=== PATIENT | female | born 1940 | race Caucasian/White ===

== ENCOUNTER 2016-12-11 15:35 | Inpatient (IN) | payer MEDICARE, OTHER ==
[2016-12-11] MEDS ORDERED: carBAMazepine LIQ(*) 100 MG/5 ML UDC (10 ML) PO ONE (16:23)
--- NOTE | 2016-12-11 16:52 | RAD ---
INDICATION: Palpitations. COMPARISON: Comparison is made with a prior chest x-ray study from August 13, 2015. TECHNIQUE: A portable view of the chest was obtained. FINDINGS: Cardiac and mediastinal contours appear to be within normal limits. The lungs are clear. No pleural effusion is seen. IMPRESSION: NO EVIDENCE FOR ACUTE DISEASE.
[2016-12-11] MEDS ORDERED: Diltiazem IV* 5 MG/ML 5 ML VIAL (for loading dose/IV Push) (25 MG) IV SLOW PU ONE (17:12)
[2016-12-11 17:36] LABS: Hematocrit 43 % (35-47); Hemoglobin 14.6 g/dl (12.0-16.0); Mean Corpuscular HGB Conc 34 g/dl (31-36); Mean Corpuscular Hemoglobin 30 pg (27-31); Mean Corpuscular Volume 88 fL (80-97); Mean Platelet Volume 8 um3 (7.4-10.4); Red Blood Count 4.89 10^6/ul (4.0-5.4); Red Cell Distribution Width 14 % (10.5-15); White Blood Count 13.9 10^3/ul (3.5-10.8)
[2016-12-11] MEDS ORDERED: NS 0.9% 1000 ML*IV.FLUID IV ONE (17:36)
[2016-12-11] MEDS ORDERED: Diltiazem IV VIAL* 125 MG in D5W 100 ML BAG* 100 ML IV ONE (17:48)
[2016-12-11 17:52] LABS: Albumin 3.5 g/dL (3.2-5.2); BUN/Creatinine Ratio 34.3 (8-20); Calcium 8.6 mg/dL (8.6-10.3); EGFR African American 110.7 (>60); Globulin 2.6 g/dL (2-4); Magnesium 2.1 mg/dL (1.9-2.7); Potassium 4.4 mmol/L (3.5-5.0); Total Bilirubin 0.6 mg/dL (0.2-1.0); Total Protein 6.1 g/dL (6.4-8.9)
[2016-12-11] MEDS ORDERED: Diltiazem DRIP* 100 MG/100 ML ADDV.BAG IVPB ONE (18:00)
[2016-12-11] MEDS: oxyCODONE ORAL.SOLN* 5 MG/5 ML UDC PO ONE ×2 (18:11→18:31)
[2016-12-11 18:36] LABS: TSH (Thyroid Stimulating Horm) 2.74 mcIU/mL (0.34-5.60)
[2016-12-11 19:23] LABS: Urine Bacteria 3+ (Absent); Urine Bilirubin Negative (Negative); Urine Glucose Negative (Negative); Urine Nitrite Positive (Negative)
[2016-12-11] MEDS ORDERED: Scopolamine 1.5 mg* PATCH TRANSDERM SCH (20:00)
[2016-12-11] MEDS: PTO: Glatiramer(NF) 20 MG/ML 1 ML SYRINGE SUBCUT SCH (20:43)
[2016-12-11] MEDS: Senna TAB PO SCH (20:45)
[2016-12-11] MEDS: Gabapentin CAP(*) 400 MG PO SCH (20:45)
[2016-12-11] MEDS: tiZANidine TAB* 2 MG PO SCH (20:45)
[2016-12-11] MEDS: Docusate CAP* 100 MG PO SCH (20:45)
[2016-12-11] MEDS: Metoprolol Succinate XL TAB* 25 MG PO SCH (20:46)
[2016-12-11] MEDS: Apixaban* 5 MG TAB PO SCH (20:46)
[2016-12-11] MEDS: Morphine ORAL CONCENTRATE* 5 MG/0.25 ML ORAL.SYRIN PO PRN (22:22)
--- NOTE | 2016-12-12 04:01 | HP ---
HISTORY AND PHYSICAL: DATE OF ADMISSION: 12/11/16 ADMITTING PHYSICIAN: Mac Rubio MD PRIMARY CARE PHYSICIAN: Eduardo Suh DEVELOPER EVANGELIST and covering physician group at [facility] (Dr. Rodriguez?) CHIEF COMPLAINT: Right-sided jaw pain (burning). PAST MEDICAL HISTORY: Paroxysmal atrial fibrillation (on eliquis); multiple sclerosis; trigeminal neuralgia, status post nerve decompression x2; urinary retention, with chronic indwelling urinary catheter change monthly; hyperlipidemia; CVAs. HISTORY OF PRESENT ILLNESS: Zaynab Anna is a 76-year-old female, PMH as above, a resident of [facility], who has developed progressive extreme 10/10 burning pain in her right face near upper and lower jaw that for the last 1 to 2 days has been preventing her from taking p.o food/liquids or meds. Feels very similar to her previous remote left-sided trigeminal neuralgia. She had recently followed up with Dr. Mack of Neurology on Thursday previous to admission to discuss her multiple sclerosis and CVA history. Facial pain symptoms at that time were minimal and barely discussed. Starting on Thursday(3 days prior to admission), the patient had progressive difficulties talking or eating. Gabapentin, which she had been stopped off at some point was restarted and then day prior to admission was doubled again. This has been effective for her in the past. History is somewhat limited from the patient herself due to extreme pain with any movement of the jaw, but son and medical- decision maker/surrogate, Eleazar Briceno, is at bedside and is able to provide some additional details. History of [address] Forbes of [facility], which did seem to relieve many of her symptoms. Dr. Forbes is no longer associated with that facility. Patient was started on liquid oral morphine concentrate and prednisone. The patient reports spitting up most of her yogurt yesterday with intense burning sensation. In ED Pt noted to be in atrial fibrillation with RVR, heart rates in the 140s. Blood pressure was initially 130/106. The patient recently saw Dr. Montez within recent weeks and she was doing so well that he was considering discharging her. She is, of note, on Eliquis currently. She denies shortness of breath, palpitations, chest pain. Son tells that sometimes she does get swelling in her legs. Of note, she has profound disability from combination of her multiple sclerosis and prior strokes with only her left hand/arm completely functional. 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 She can wiggle her toes bilaterally. Reportedly, emergency room physician contacted neurologist and recommended Tegretol, but of note, the patient reportedly has a history of hallucinations with Tegretol when it was used back in 2003 for her original diagnosis of trigeminal neuralgia. Of note, son thinks at that time that given her profound weight loss of many dozens of pounds at that time that it was hard to tell if the Tegretol was in fact the culprit versus her profound nutritional debilitation. Of note, the patient was started on a diltiazem drip 5mg/hr in the emergency room. Her pressures began to get slightly soft in the low 110s and while this provider was in the room, she converted back to normal sinus rhythm in the 60s. PAST SURGICAL HISTORY: Tonsillectomy, tubal ligation, trigeminal nerve decompression x2. REVIEW OF SYSTEMS: Complete 14-point review of systems was negative except as per HPI. Of note, the patient denies chest pain, shortness of breath, palpitations, paroxysmal nocturnal dyspnea, orthopnea, abdominal pain, nausea, vomiting, diarrhea, constipation, rash, or sick contacts. She does attests to chronic right arm and bilateral leg weakness, new right-sided jaw burning pain. Denies any visual changes or headaches. No loss of sensation. Social History: no smoking or drug use. Occasional alcohol use. Eleazar Briceno (her son) is medical surrogate. Resident of [facility]. Family History: Mother (TIAs) 93, Father (CVA, CHF) age 72. son of muscular dystropy as child. PHYSICAL EXAMINATION GENERAL: The patient is in no acute distress but with any sort of talking or physical exam of mouth is in extreme discomfort, no noticeable tics though son reports that several tics at [place] were observed on right side of face. VITAL SIGNS: Blood pressure 152/120; heart rate 60s, previously 140s; afebrile , 96.4 degrees Fahrenheit; respiratory rate 15 to 20; saturating 97% on room air. HEENT: Normocephalic, atraumatic. No scleral icterus. Oropharynx exam is limited by extreme pain with any motion, but no lesions are obtained. Dentition is slightly poor with seemingly cavity on the left side of the mouth. No maame cavities were seen on the right side but multiple teeth missing. NECK: Supple. No cervical lymphadenopathy. RESPIRATORY: Clear to auscultation on bilateral lung lopez. No wheezing, rales, or rhonchi. CARDIOVASCULAR: Initially irregularly irregular, tachycardic, now normal sinus rhythm. Normal S1, S2. No murmurs, rubs, or gallops. ABDOMEN: Soft, nontender, nondistended. No rebound or guarding. Negative Rollins's sign. EXTREMITIES: Pulses intact bilaterally. No swelling. No edema. NEUROLOGIC: Career Technical Counselor strength is 4+ on the left, 3+ on the right. The patient can wiggle to us bilaterally but no antigravity motion in bilateral legs. No unilateral nasolabial drooping though both seemed to be depressed. Visual lopez are full. Extraocular motions are mostly intact, although seeming deficient to left lateral abduction in both eyes. Burning pain to stimulation in V2, V3 distribution SKIN: No rashes. No lesions. DIAGNOSTIC STUDIES/LAB DATA: Labs: She has elevated white count of 13.9, negative troponin 0.00, TSH was 2.74, creatinine 0.67, sodium 137, potassium 4.4, magnesium 2.1, BUN 23, glucose 77. Chest x-ray: No acute disease. EKG: Atrial fibrillation with rapid ventricular response, heart rate 143, normal axis, QTc 41, no ST depressions or elevations. ASSESSMENT AND PLAN: The patient is a 76-year-old female with: 1. History of profound neurological deficits stemming from her multiple sclerosis and cerebrovascular accidents, presenting with right-sided burning pain in the facial nerve distribution, V2 and V3. The patient seems to be having again flare of trigeminal neuralgia, which has been controlled in the past with gabapentin, which was stopped for unclear reason and ultimately surgical decompression. We will follow up on neurological evaluation reportedly done in the emergency room and follow with patient's outpatient neurologist in the a.m., Dr. Mack. We will continue gabapentin and oral concentrated morphine and consider rechallenge of Tegretol given unclear previous diagnosis of hallucinations. 2. Atrial fibrillation with rapid ventricular response. The patient will be continued on Eliquis. Her heart rate is now back to normal after spontaneous conversion on short time of diltiazem drip at 5 mg an hour that will be stopped. Her metoprolol succinate 25 mg daily will be continued. Elctrolytes are replete but will be checked daily including goal magnesium above 2, potassium of 4. Her Eliquis will be continued. Troponin will not be checked as she has not been complaining of any chest pain or shortness of breath. Her triggers of rapid ventricular response are likely secondary to relative dehydration in the setting of this burning nerve pain preventing p.o. intake over the last few days. She did improve with a liter bolus in the OR. We will continue IV hydration at maintenance rate overnight until she can take more adequate p.o. intake. The patient's prednisone 40 mg tab daily perhaps started in the setting of this nerve pain will be continued for now along with home Zanaflex 2 mg p.o. b.i.d., scopolamine patch 1.5 mg q.72 hours, and for multiple sclerosis, her Copaxone (glatiramer) 20 mg subcutaneous q.p.m. will be continued. Her dose of gabapentin is currently 400 mg p.o. b.i.d. that will be titrated to effect. Her home stool softener docusate 100 mg p.o. b.i.d. will be continued along with apixaban 5 mg p.o. b.i.d. 3. DVT prophylaxis, accomplished via Eliquis blood thinner. 4. Code status was discussed. She vacillated within the space of 3 minutes first thing that she did not want resuscitation and then after further clarifications, said she would want full resuscitation with CPR, chest compressions, intubation. She will be full code for now. She will be admitted to medicine observation status telemetry floor. [id number]/[facility] #: [id number] [facility]
[2016-12-12] MEDS: Morphine ORAL CONCENTRATE* 5 MG/0.25 ML ORAL.SYRIN PO PRN (05:55)
[2016-12-12] MEDS: tiZANidine TAB* 2 MG PO SCH (08:17)
[2016-12-12] MEDS: Senna TAB PO SCH ×2 (08:17→21:29)
[2016-12-12] MEDS: Docusate CAP* 100 MG PO SCH ×2 (08:18→21:29)
[2016-12-12] MEDS: Gabapentin CAP(*) 400 MG PO SCH (08:18)
[2016-12-12] MEDS: Apixaban* 5 MG TAB PO SCH ×2 (08:19→21:30)
[2016-12-12] MEDS ORDERED: OXcarbazepine TAB(*) 300 MG PO SCH (09:00)
[2016-12-12] MEDS ORDERED: predniSONE TAB* 20 MG PO SCH (09:00)
[2016-12-12 09:57] LABS: Hematocrit 39 % (35-47); Mean Corpuscular HGB Conc 34 g/dl (31-36); Mean Corpuscular Hemoglobin 30 pg (27-31); Mean Corpuscular Volume 89 fL (80-97); Mean Platelet Volume 8 um3 (7.4-10.4); Red Blood Count 4.34 10^6/ul (4.0-5.4); Red Cell Distribution Width 15 % (10.5-15); White Blood Count 8.1 10^3/ul (3.5-10.8)
[2016-12-12] MEDS ORDERED: NS 0.9% 1000 ML* 1,000 ML IV SCH (11:45)
[2016-12-12] MEDS: OXcarbazepine TAB(*) 300 MG PO SCH ×2 (15:40→21:30)
--- NOTE | 2016-12-12 17:11 | CONS ---
CC: Dr. Jennifer Mack * NEUROLOGY CONSULTATION: DATE OF CONSULT: 12/12/16 LOCATION: She is inpatient, room 434. REFERRING PHYSICIAN: Mac Rubio MD. CHIEF COMPLAINT: Right facial pain. HISTORY OF PRESENT ILLNESS: Zaynab Anna is a 76-year-old woman with multiple sclerosis for decades. She follows with Dr. Jennifer Mack in our office. She had been treated with CellCept in the past, in more recent years Copaxone. Reviewing Dr. 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 She has a history of left trigeminal neuralgia, which was very severe according to her son and [id number] who are present today. She could not eat and lost weight and became malnourished. She did not tolerate Tegretol at that time because of hallucinations, but she was very ill and was on numerous other medications according to the family, so it is not clear if she had a reaction to the Tegretol itself. In any case, she ended up getting a percutaneous procedure in the left trigeminal nerve, which resolved the left facial pain. She had a recur some years later and had a second percutaneous procedure, which worked. She developed right facial pain this past month. She was put on gabapentin and saw Dr. Mack just 7 days ago and her pain is under control on 100 mg twice per day. About 2 to 3 days ago, the pain recurred. It is in the right side of the face and was severe such that she could not take pills or eat. Swallowing or touching her face or even opening her jaw hurt. She was put on prednisone yesterday or perhaps the day before by a PA at her intermediate. She had her gabapentin increased to 400 mg twice per day 2 or 3 days ago. However, the pain was under control and she presented to the emergency room. In the emergency room, she had rapid atrial fibrillation as well as the facial pain and so was admitted. She was started on Trileptal 300 mg twice per day today. She has not had any facial pain since this morning. She also received a dose of morphine earlier today. PAST MEDICAL HISTORY: Notable for secondary progressive multiple sclerosis; right frontal infarct about a year ago; chronic atrial fibrillation, on anticoagulation with Eliquis; chronic Garcia catheter; hyperlipidemia. MEDICATIONS: Currently consist of: 1. Eliquis 5 mg p.o. b.i.d. 2. Colace 100 mg p.o. b.i.d. 3. Gabapentin 400 mg p.o. b.i.d. 4. Copaxone 20 mg subcutaneous daily. 5. Metoprolol XL 25 mg p.o. q.h.s. 6. Morphine sulfate 5 mg p.o. q.4 hours as needed for pain. 7. Trileptal 300 mg p.o. b.i.d. 8. Prednisone 40 mg p.o. daily. 9. Senokot 2 tabs p.o. b.i.d. 10. Tizanidine 2 mg p.o. b.i.d. ALLERGIES: She lists as having CARBAMAZEPINE allergy, but in fact had delirium on it and not a rash. She is also allergic to AMOXICILLIN. REVIEW OF SYSTEMS: Notable for not eating in the last couple of days because of the pain. She was able to eat today. She has chronically impaired memory. She has not been ambulatory for years. No recent fevers or infections. She has chronic double vision. PHYSICAL EXAM: She looks a little dehydrated. Temperature is 97.4 orally, blood pressure 90/35, heart rate is in the 70s and irregular. I do not hear any murmurs. Cervical pulses are intact and there are no bruits. Oral mucosa is a little bit dry, but no lesions. 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 Facial musculature is symmetric. Facial sensation is diminished to light touch in the left side of the face. There is no pain with facial sensation or motor testing. Speech is dysarthric, but intelligible. She has a little movement in her legs. She has antigravity strength in her arms. She has poor attention and concentration and poor memory. DIAGNOSTIC DATA/LAB DATA: Laboratory data includes an elevated white blood cell count yesterday when she came in at 13.9, normal at 8.1 today. CBC is otherwise normal. Chemistry profile is notable for elevated BUN to creatinine ratio of 34 yesterday and otherwise unremarkable chemistry profile. Urinalysis from yesterday notable for 2+ ketones, 3+ blood, 1+ protein, 3+ leukocyte esterase and white blood cells, 3+ bacteria. IMPRESSION: Impression is that of new right-sided trigeminal neuralgia, undoubtedly from her multiple sclerosis. So far Trileptal seems to have worked. Recommend increasing the dose to 300 mg every 8 hours and discontinuing gabapentin and prednisone. I would not be averse to trying carbamazepine again if Trileptal fails as she did not really have any allergy to it in the past and sounds like she was delirious from multifactorial reasons rather than just Tegretol in the past. Discussed my recommendations with Ms. Anna and her son and [id number]. [id number]/[facility] #: [id number] MTDYasmany
[2016-12-12] MEDS: PTO: Glatiramer(NF) 20 MG/ML 1 ML SYRINGE SUBCUT SCH (18:07)
--- NOTE | 2016-12-12 18:20 | ED ---
Hernandez [place] Angela, scribed for Babatunde Shrestha MD on 12/11/16 at 1621 . Throat Pain/Nasal Congestion - HPI Summary HPI Summary: This pt is a 76 y/o female accompanied by her son presenting to [facility] c/o right sided face pain for the past couple of days. Pt's son is reporting the story as the pt is unable to talk secondary to pain. Per son, pt has waves of sharp pain. Pt has trigeminal neuralgia on the left side and has had multiple surgeries in [facility]. She has been taking Gabapentin with no relief, amount is unknown. PMHx: atrial fibrillation. - History of Current Complaint Chief Complaint: EDDentalPain Time Seen by Provider: 12/11/16 16:11 Hx Obtained From: Patient, Family/Project Surveyor - son Onset/Duration: Lasting Days Associated Signs And Symptoms: Negative: Drooling - Allergies/Home Medications Allergies/Adverse Reactions: Allergies Allergy/AdvReac Type Severity Reaction Status Date / Time Amoxicillin [From Augmentin] Allergy Unknown Verified 04/15/13 12:13 Reaction Details Carbamazepine [From Tegretol] Allergy Unknown Verified 04/15/13 12:13 Reaction Details Clavulanic Acid Allergy Unknown Verified 04/15/13 12:13 [From Augmentin] Reaction Details Phenytoin [From Dilantin] Allergy Unknown Verified 04/15/13 12:13 Reaction Details Home Medications: Home Medications ALPRAZolam TAB* [Xanax TAB*] 0.25 mg PO MONTHLY 12/11/16 [History Confirmed ] Acetaminophen [Acetaminophen Extra Stren] 1,000 mg PO BID 12/11/16 [History Confirmed 12/11/16] Gabapentin CAP(*) [Neurontin 400 mg CAP(*)] 400 mg PO BID 12/11/16 [History Confirmed 12/11/16] Menthol-Zinc Oxide [Calmoseptine] 1 oin TOPICAL BID PRN 12/11/16 [History Confirmed 12/11/16] Metoprolol Succinate XL TAB* [Toprol XL TAB*] 25 mg PO BEDTIME 12/11/16 [ History Confirmed 12/11/16] Morphine ORAL.CONC BULK BOT* [Roxanol ORAL.CONC Bottle*] 0.25 ml PO Q4HR PRN [History Confirmed 12/11/16] Scopolamine 1.5 mg* PATCH* [Transderm-Scop 1.5 mg Patch*] 1 patch TRANSDERM Q72H 12/11/16 [History Confirmed 12/11/16] Sennosides-Docusate Sodium [Senna-S 8.6-50 mg] 2 tab PO BID 12/11/16 [History Confirmed 12/11/16] predniSONE TAB* [Deltasone TAB*] 40 mg PO DAILY 12/11/16 [History Confirmed ] tiZANidine TAB* [Zanaflex TAB*] 2 mg PO BID 12/11/16 [History Confirmed 12/11/16 ] PMH/Surg Hx/FS Hx/Imm Hx Endocrine/Hematology History: Denies: Hx Diabetes, Hx Systemic Lupus Erythematosus Cardiovascular History: Reports: Hx Atrial Fibrillation, Hx Hypercholesterolemia , Hx Hypotension Denies: Hx Congestive Heart Failure, Hx Hypertension, Hx Pacemaker/ICD Respiratory History: Denies: Hx Asthma History: Reports: Other Problems/Disorders - urinary retention, chronic hsu Denies: Hx Dialysis, Hx Renal Disease Musculoskeletal History: Reports: Other Musculoskeletal History - MS Denies: Hx Rheumatoid Arthritis Sensory History: Reports: Hx Contacts or Glasses Denies: Hx Hearing Aid Opthamlomology History: Reports: Hx Contacts or Glasses Neurological History: Reports: Hx Seizures, Other Neuro Impairments/Disorders - MS Psychiatric History: Denies: Hx Panic Disorder - Cancer History Hx Chemotherapy: No - Surgical History Surgery Procedure, Year, and Place: TONSILECTOMY. TUBAL LIGATON Hx Anesthesia Reactions: No Infectious Disease History: No Infectious Disease History: Denies: Traveled Outside the [place] in Last 30 Days - Family History Known Family History: Positive: Cardiac Disease - Mother: TIA. Father: CVA, CHF - Social History Alcohol Use: None Hx Substance Use: No Substance Use Type: Reports: None Smoking Status (MU): Never Smoked Tobacco Review of Systems Negative: Fever, Chills Eyes: Negative Positive: Other - right sided facial pain Negative: Chest Pain Negative: Shortness Of Breath Gastrointestinal: Negative Skin: Negative Negative: Headache, Weakness, Paresthesia, Numbness, Syncope All Other Systems Reviewed And Are Negative: Yes Physical Exam - Summary Physical Exam Summary: VITAL SIGNS: Reviewed. GENERAL: Patient is a well-developed and nourished, pale with dry oral mucosa female who is lying comfortable in the stretcher at this time. Patient is not in acute distress. HEAD AND FACE: No signs of trauma. No ecchymosis, hematomas or skull depressions. No sinus tenderness. EYES: PERRLA, EOMI x 2, No injected conjunctiva, no nystagmus. No photophobia. EARS: Hearing grossly intact. Ear canals and tympanic membranes are within normal limits. MOUTH: Oropharynx within normal limits. NECK: Supple, trachea is midline, no adenopathy, no JVD, no carotid bruit, no c- spine tenderness, neck with full ROM. No meningeal signs, no Kernig's or brudzinskis signs. CHEST: Symmetric, no tenderness at palpation LUNGS: Clear to auscultation bilaterally. No wheezing or crackles. CVS: Pt is tachycardic with irregular rhythm, S1 and S2 present, no murmurs or gallops appreciated. ABDOMEN: Soft, non-tender. No signs of distention. No rebound no guarding, and no masses palpated. Bowel sounds are normal. EXTREMITIES:no edema, no cyanosis or clubbing. Hypotonia in UE and LE secondary to her MS. NEURO: Alert and oriented x 3. No acute neurological deficits. Speech is normal and follows commands. SKIN: Dry and warm GCS: 15 Triage Information Reviewed: Yes Vital Signs On Initial Exam: Initial Vitals Temp Pulse Resp BP Pulse Ox 96.4 F 130 15 130/106 97 12/11/16 16:11 12/11/16 16:11 12/11/16 16:11 12/11/16 16:11 12/11/16 16:11 Vital Signs Reviewed: Yes Diagnostics - Vital Signs Vital Signs Temp Pulse Resp BP Pulse Ox 12/11/16 16:11 96.4 F 130 15 130/106 97 - Laboratory Result Diagrams: 12/11/16 17:25 12/11/16 17:25 Lab Statement: Any lab studies that have been ordered have been reviewed, and results considered in the medical decision making process. - Radiology chest XR Xray Interpretation: No Acute Changes - IMPRESSION: No evidence for acute disease. ED physician has reviewed this radiology report and agrees. Radiology Interpretation Completed By: Radiologist - EKG 1657 EKG Rhythm: Atrial Fibrillation - 143 bpm EKG Interpretation: Normal axis EENT Course/Dx - Course Assessment/Plan: This pt is a 76 y/o female accompanied by her son presenting to [facility] c/o right sided face pain for the past couple of days. Pt's son is reporting the story as the pt is unable to talk secondary to pain. Per son, pt has waves of sharp pain. Pt has trigeminal neuralgia on the left side and has had multiple surgeries in [facility]. She has been taking Gabapentin with no relief, amount is unknown. PMHx: atrial fibrillation. Test results show WBC of 13.9 without any bands, otherwise the test results are without any significant abnormalities. Chest XR shows no acute pathology. In the ED course, the pt was given IV fluids and she was given cardizem, since the pt has afib with RVR. Her heart rate increased to 125 bpm and pt was placed on a cardizem drip. Pt was also given oxycodone for the pain. At this point I discussed my findings and results with Ms. Arroyopepejuan, who discussed with Dr. Keane and accepted the pt for admission. Pt is hemodynamically stable, alert and oriented x3. - Diagnoses Provider Diagnoses: Atrial fibrillation with RVR, right trimeginal neuralgia - Provider Notifications Discussed Care Of Patient With: Jairo Boggs Instructed by Provider To: Other - I discussed the pt's case with Jairo Boggs , who spoke with Dr. Keane and accepted the pt for admission. Discharge - Discharge Plan Condition: Stable Disposition: ADMITTED TO [facility] The documentation as recorded by the Hernandez gamboa Angela accurately reflects the service I personally performed and the decisions made by me, Babatunde Shrestha MD.
--- NOTE | 2016-12-12 19:32 | PN ---
Subjective Date of Service: 12/12/16 Interval History: Started on trileptal. Pain improved from 12/23 to 11/23. Pt inconsistent historian at times. Seemingly pain free 2-[address] Wang during neuro consult. Gapapentin and steroids stopped. Cop[place]an not able to be obtained from [place] [facility] or inpatient pharmacy 04/17 excessive cost $4900. Objective Active Medications: Apixaban (Eliquis*) 5 mg PO BID [facility] Last Admin: 12/12/16 08:19 Dose: 5 mg Docusate Sodium (Colace Cap*) 100 mg PO BID [facility] Last Admin: 12/12/16 08:18 Dose: 100 mg Glatiramer Acetate (Copaxone(Nf)) 20 mg SUBCUT QPM [facility] Last Admin: 12/12/16 18:07 Dose: Not Given Sodium Chloride (Ns 0.9% 1000 Ml*) 1,000 mls @ 50 mls/hr IV .PER RATE [facility] Stop: 12/13/16 11:44 Last Admin: 12/12/16 12:31 Dose: 50 mls/hr Metoprolol Succinate (Toprol Xl Tab*) 25 mg PO BEDTIME [facility] Last Admin: 12/11/16 20:46 Dose: 25 mg Morphine Sulfate (Morphine Oral Concentrate*) 5 mg PO Q4HR PRN PRN Reason: PAIN Last Admin: 12/12/16 05:55 Dose: 5 mg Oxcarbazepine (Trileptal Tab(*)) 300 mg PO Q8H [facility] Last Admin: 12/12/16 15:40 Dose: 300 mg Scopolamine (Transderm-Scop 1.5 Mg Patch*) 1 patch TRANSDERM Q72H [facility] Last Admin: 12/11/16 20:46 Dose: 1 patch Senna (Senokot Tab*) 2 tab PO BID [facility] Last Admin: 12/12/16 08:17 Dose: 2 tab Tizanidine HCl (Zanaflex Tab*) 2 mg PO BID [facility] Last Admin: 12/12/16 08:17 Dose: 2 mg Vital Signs 12/12/16 12/12/16 12:19 15:21 Temperature 97.4 F 97.9 F Pulse Rate 62 69 Respiratory 18 16 Rate Blood Pressure 90/35 110/43 (mmHg) O2 Sat by Pulse 98 99 Oximetry Appearance: No acute distress. Favors left arm Eyes: No Scleral Icterus, PERRLA Ears/Nose/Mouth/Throat: - - dentition poor Neck: NL Appearance and Movements; NL JVP, Trachea Midline Respiratory: Symmetrical Chest Expansion and Respiratory Effort, Clear to Auscultation Cardiovascular: NL Sounds; No Murmurs; No JVD, RRR, No Edema Abdominal: NL Sounds; No Tenderness; No Distention Extremities: No Edema Skin: No Rash or Ulcers Neurological: Alert and Oriented x 3, - - very painful to light touch in V2 and V3 distribution. right arm and b/l leg weakness. intact sensation. Result Diagrams: 12/12/16 09:17 12/11/16 17:25 Additional Lab and Data: Laboratory Results - last 24 hr 12/12/16 09:17 WBC 8.1 RBC 4.34 Hgb 13.0 Hct 39 MCV 89 MCH 30 MCHC 34 RDW 15 Plt Count 208 MPV 8 Neut % (Auto) 70.3 Lymph % (Auto) 19.8 L [place] % (Auto) 7.6 Eos % (Auto) 1.5 Baso % (Auto) 0.8 Absolute Neuts (auto) 5.7 Absolute Lymphs (auto) 1.6 Absolute Monos (auto) 0.6 Absolute Eos (auto) 0.1 Absolute Basos (auto) 0.1 Absolute Nucleated RBC 0 Nucleated RBC % 0 Assess/Plan/Problems-Billing Assessment: 76 year old female PMH progressive severe MS, CVAs, left trigeminal neuralgia, pAfib who presented with right trigeminal neuralgia (V2,V3 distribution) likely 2/2 progressive MS. Course complicated in ED by Afib with RVR (resolved). Trileptal seemingly effective. Pain had prevented oral intake. - Patient Problems (1) Trigeminal neuralgia of right side of face Current Visit: Yes Status: Acute Code(s): G50.0 - TRIGEMINAL NEURALGIA SNOMED Code(s): 62354477 Comment: V2, V3 distribution, likely 2/2 progressive MS Appreciate neurology recs. Increased trileptal to 300mg q8. Stop gabapentin, prednisone. Stop zanaflex. (2) Multiple sclerosis Current Visit: No Status: Acute Code(s): G35 - MULTIPLE SCLEROSIS SNOMED Code(s): 75220094 Comment: Progressive. Likely d/c 12/13 or 12/14. Pharmacy can't obtain her copaxone her. Will need outpatient Neurology f/u. (3) Chronic indwelling Garcia catheter Current Visit: Yes Status: Acute Code(s): Z92.89 - PERSONAL HISTORY OF OTHER MEDICAL TREATMENT SNOMED Code(s): 610536974 Comment: changed monthly, asymptomatic. likely colonization with Ecoli. Replace 12/13. (4) CVA (cerebral vascular accident) Current Visit: No Status: Resolved Code(s): I63.9 - CEREBRAL INFARCTION, UNSPECIFIED SNOMED Code(s): 862029794 Comment: Continue Eliquis (5) Paroxysmal a-fib Current Visit: No Status: Acute Code(s): I48.0 - PAROXYSMAL ATRIAL FIBRILLATION SNOMED Code(s): 042218652 Comment: Continue eliquis, telemetry, metoprolol 25mg qhs. resolved RVR. Status and Disposition: medicine, changed to inpatient. Possible d/c 12/13 or 12/14 if able to tolerate po intake again. To [facility]. Attending: Mac Rubio
[2016-12-12] MEDS: Metoprolol Succinate XL TAB* 25 MG PO SCH (21:30)
[2016-12-13] MEDS: Senna TAB PO SCH (07:35)
[2016-12-13] MEDS: OXcarbazepine TAB(*) 300 MG PO SCH (07:37)
[2016-12-13] MEDS: Docusate CAP* 100 MG PO SCH (07:38)
[2016-12-13] MEDS: Apixaban* 5 MG TAB PO SCH (07:38)
[2016-12-13] MEDS ORDERED: tiZANidine TAB* 2 MG PO SCH (10:00)
[2016-12-13 10:21] LABS: Hematocrit 35 % (35-47); Mean Corpuscular HGB Conc 34 g/dl (31-36); Mean Corpuscular Hemoglobin 30 pg (27-31); Mean Corpuscular Volume 88 fL (80-97); Mean Platelet Volume 8 um3 (7.4-10.4); Red Blood Count 3.96 10^6/ul (4.0-5.4); Red Cell Distribution Width 14 % (10.5-15); White Blood Count 8.4 10^3/ul (3.5-10.8)
[2016-12-13 12:45] VITALS: BP 110/41
--- NOTE | 2016-12-15 04:29 | DS ---
DISCHARGE SUMMARY: DATE OF ADMISSION: 12/11/16 DATE OF DISCHARGE: 12/13/16 ADMITTING PROVIDER: Mac uRbio MD. ATTENDING PROVIDER: Mac Rubio MD. PRIMARY CARE PROVIDER: Eduardo Suh NP CHIEF COMPLAINT: Right-sided burning jaw pain. PRINCIPAL DIAGNOSIS: Trigeminal neuralgia. SECONDARY DIAGNOSES: Multiple sclerosis, history of CVAs, proximal atrial fibrillation, chronic ind welling urinary catheter, hyperlipidemia. HISTORY OF PRESENT ILLNESS AND HOSPITAL COURSE: Zaynab Anna is a 76-year-old female with past medical history as above lives in [facility], presented with progressive pain in her right uppe r and lower jaw preventing her from eating food or drinking from a straw for the last few days. She had seen Dr. Mack, her neurologist probably a day prior to admission for unrelated matters relat ing to multiple sclerosis and pain had been controlled at that time. Covering physician at [place] prescribed prednisone or morphine and increased the gabapentin without relief of symptoms, so patie nt transferred to [facility] Emergency Room. There, she was found to be in atrial fibrill ation with rapid ventricular response with heart rate 140. She was placed on diltiazem drip at 5 an d had spontaneous conversion back to normal sinus rhythm in the emergency room. She was admitted to observation status status and on hospital day #2 started on Trileptal 300 mg b.i.d. Neurology consu ltation was obtained from Dr. Rahman, who increased the dose to every 8 hours. The patient had rem arkable improvement of symptoms. Now, denying any pain with eating or with palpation of facial nerv e V2 or V3 distributions as she had before. Dr. Rahman also recommended cessation of her gabapenti n. Her prednisone and morphine will also recommended to be stopped. The patient will need to have CBC checked every 2 weeks for the first month while on Trileptal to monitor her signs for agranulocy tosis and anemia. Other side effects include hyponatremia, confusion. She will need to follow up w luis armando Mack, her outpatient neurologist along with BOND ANALYST, Eduardo Suh and other covering physicians at [facility]. Of note, she has a listed allergy to TEGRETOL, which she first was diagnosed ov er a decade ago with the initiation of her left-sided trigeminal neuralgia, which has since resolved . However, that was in the setting of profound weight loss of multiple dozens of pounds at the time and other medication changes, so it is not clear if that is a true side effect of that medication, so it could be considered trial if Trileptal fails. DISCHARGE MEDICATIONS: 1. Eliquis 5 mg p.o. b.i.d. 2. Copaxone (glatiramer) 20 mg subcutaneous daily. 3. Metoprolol succinate 25 mg p.o. q.h.s. 4. Trileptal 300 mg p.o. q.8 hours. 5. Scopolamine patch 1.5 mg q.72 hours. 6. Senna/docusate sodium 2 tabs p.o. b.i.d. 7. Zanaflex 2 mg p.o. b.i.d. 8. Xanax tab 0.25 mg p.o. monthly with Garcia changes. DISCHARGE DIET: Include pureed, unchanged. DISCHARGE DISPOSITION: Include [facility]. TIME SPENT ON DISCHARGE: 35 minutes [id number]/[facility] #: [id number]
== END 2016-12-13 14:15 | DRG 74 ==
LOC: ED 15:35 → MEDTELE 18:09 → OBSVTOIN 12-12 11:57
PROVIDERS: ADMIT Internal Medicine; ATTEND Internal Medicine
DX: G50.0 Trigeminal neuralgia (principal); I48.0 Paroxysmal atrial fibrillation; G35 Multiple sclerosis; E78.5 Hyperlipidemia, unspecified; H50.10 Unspecified exotropia; R33.9 Retention of urine, unspecified; Z86.73 Personal history of transient ischemic attack (TIA), and cerebral infarction without residual deficits; Z88.1 Allergy status to other antibiotic agents; Z88.8 Allergy status to other drugs, medicaments and biological substances; Z82.3 Family history of stroke; Z82.49 Family history of ischemic heart disease and other diseases of the circulatory system; Z98.51 Tubal ligation status; Z79.01 Long term (current) use of anticoagulants
CPT/HCPCS: 36415; 71010; 80053; 81003; 81015; 82607; 82746; 83735; 84439; 84443; 84484; 85025; 87077; 87086; 87186; 87641; 93005; A9270-GY; G0378; J7512

== ENCOUNTER 2017-05-15 13:38 | Emergency (ER) | payer MEDICARE ==
--- NOTE | 2017-05-15 14:39 | RAD ---
Indication: .Foot stuck under desk in a fall from wheelchair. Multiple sclerosis. Comparison: No relevant prior exams available on the [facility] PACS for comparison. Technique: AP and crosstable lateral views LEFT foot. REPORT AND IMPRESSION: Bone density appears decreased throughout. No fracture or dislocation evident. Unremarkable soft tissue contours.
--- NOTE | 2017-05-15 14:43 | ED ---
Adult Trauma - HPI Summary HPI Summary: 77 female presents to ED BIBA after sustaining a mechanical fall out of her wheelchair per patient and staff. Was unwittnessed. Patient suffers from MS and has loss of motor and sensation of majority of limbs, also has had CVA. Is on anticoagulants. States she hit her head on the wall. Denies any hematoma, headache, vision changes, vomiting, or nausea. No complaints of pain at this time. Sent to be checked out due to patients condition. Also states her left foot "got stuck under the desk". No LOC. Acting appropriately/normal mentation. - History of Current Complaint Chief Complaint: EDGeneral Stated Complaint: FALL Time Seen by Provider: 05/15/17 14:08 Hx Obtained From: Patient, Family/Placement Assistant - sisters, family and longterm, EMS ?: No Mechanism of Injury: Blunt Trauma Loss of Consciousness: no loss of consciousness Force: Low Onset/Duration: Started Hours Ago, Traumatic Current Severity: None Pain Intensity: 0 Pain Scale Used: 0-10 Numeric Location: Head, Extremities - left foot Aggravating Factor(s): Nothing Alleviating Factor(s): Nothing - Additional Pertinent History Primary Care Physician: [id number] - Allergy/Home Medications Allergies/Adverse Reactions: Allergies Allergy/AdvReac Type Severity Reaction Status Date / Time MS Amoxicillin Allergy Unknown Verified 04/15/13 12:13 [From Augmentin] Reaction Details MS Carbamazepine Allergy Unknown Verified 04/15/13 12:13 [From Tegretol] Reaction Details MS CI Pigment Blue 63 Allergy Unknown Verified 12/11/16 21:49 [From Tamiflu] Reaction Details MS Clavulanic Acid Allergy Unknown Verified 04/15/13 12:13 [From Augmentin] Reaction Details MS Digoxin [Digoxin] Allergy Unknown Verified 12/11/16 21:48 Reaction Details MS Oseltamivir [From Tamiflu] Allergy Unknown Verified 12/11/16 21:49 Reaction Details MS Phenytoin [From Dilantin] Allergy Unknown Verified 04/15/13 12:13 Reaction Details MS Rivaroxaban [From Xarelto] Allergy Unknown Verified 12/11/16 21:49 Reaction Details Home Medications: Home Medications Acetaminophen [Acetaminophen Extra Strength] 1,000 mg PO BID 05/15/17 [History Confirmed 05/15/17] Acetaminophen [Acetaminophen Extra Strength] 1,000 mg PO DAILY PRN 05/15/17 [ History Confirmed 05/15/17] Cyanocobalamin INJ * [Vitamin B12 INJ *] 1,000 mcg IM MONTHLY 05/15/17 [History Confirmed 05/15/17] Glatiramer(NF) [Copaxone(NF)] 20 mg SUBCUT DAILY 05/15/17 [History Confirmed 05/03] Menthol/Zinc Oxide [Calmoseptine Ointment Packet] 3.5 gm TOPICAL BID PRN [History Confirmed 05/15/17] OXcarbazepine TAB(*) [Trileptal 300 mg TAB(*)] 300 mg PO BID 05/15/17 [History Confirmed 05/15/17] Ranitidine TAB (NF) [Zantac TAB (NF)] 150 mg PO DAILY 05/15/17 [History Confirmed 05/15/17] Sennosides/Docusate Sodium [Senna-S Tablet] 2 tab PO BID 05/15/17 [History Confirmed 05/15/17] tiZANidine TAB* [Zanaflex TAB*] 2 mg PO BEDTIME 05/15/17 [History Confirmed 05/03] PMH/Surg Hx/FS Hx/Imm Hx Endocrine/Hematology History: Denies: Hx Diabetes, Hx Systemic Lupus Erythematosus Cardiovascular History: Reports: Hx Atrial Fibrillation, Hx Hypercholesterolemia , Hx Hypotension Denies: Hx Congestive Heart Failure, Hx Hypertension, Hx Pacemaker/ICD Respiratory History: Denies: Hx Asthma History: Reports: Other Problems/Disorders - urinary retention, chronic hsu Denies: Hx Dialysis, Hx Renal Disease Musculoskeletal History: Reports: Other Musculoskeletal History - MS Denies: Hx Rheumatoid Arthritis Sensory History: Reports: Hx Contacts or Glasses Denies: Hx Hearing Aid Opthamlomology History: Reports: Hx Contacts or Glasses Neurological History: Reports: Hx CVA, Hx Seizures, Other Neuro Impairments/ Disorders - MS Psychiatric History: Denies: Hx Panic Disorder - Cancer History Cancer Type, Location and Year: breast biopsy, benign Hx Chemotherapy: No - Surgical History Surgery Procedure, Year, and Place: TONSILECTOMY. TUBAL LIGATON. BREAST BIOPSY -BENIGN Hx Anesthesia Reactions: No - Immunization History Immunizations Up to Date: Yes Infectious Disease History: No Infectious Disease History: Reports: Hx Clostridium Difficile Denies: Traveled Outside the [place] in Last 30 Days - Family History Known Family History: Positive: None, Cardiac Disease - Mother: TIA. Father: CVA , CHF - Social History Alcohol Use: None Hx Substance Use: No Substance Use Type: Reports: None Smoking Status (MU): Never Smoked Tobacco Review of Systems Constitutional: Negative Cardiovascular: Negative Respiratory: Negative Musculoskeletal: Negative Neurological: Negative All Other Systems Reviewed And Are Negative: Yes Physical Exam Triage Information Reviewed: Yes Vital Signs On Initial Exam: Initial Vitals Temp Pulse Resp BP Pulse Ox 98.8 F 67 18 130/49 98 05/15/17 13:46 05/15/17 13:46 05/15/17 13:46 05/15/17 13:46 05/15/17 13:46 Vital Signs Reviewed: Yes Appearance: Positive: Well-Appearing, No Pain Distress, Well-Nourished Skin: Positive: Warm, Skin Color Reflects Adequate Perfusion, Dry. Negative: Cold, Numb, Cyanosis @, Pale, Erythema @ Head/Face: Positive: Normal Head/Face Inspection, Other - no racoon eyes or battles signs, no facial bone tenderness.. Negative: TMJ Tenderness, Scalp ENT: Positive: Normal ENT inspection, Hearing grossly normal, Pharynx normal Neck: Positive: Supple, Nontender Respiratory/Lung Sounds: Positive: Clear to Auscultation, Breath Sounds Present. Negative: Rales, Rhonchi, Wheezes Cardiovascular: Positive: Normal, RRR, Pulses are Symmetrical in both Upper and Lower Extremities - 2+. Negative: Murmur, Rub Abdomen Description: Positive: Nontender, Soft Bowel Sounds: Positive: Present Musculoskeletal: Positive: Strength/ROM Intact - normal per patients chronic status/MS, Other - no ecchymosis or edema, no obvious deformity, no signs of trauma. Negative: Limited @, Interruption @, Abnormal @, Pain @, Edema Left, Edema Right Neurological: Positive: Normal, Sensory/Motor Intact - per patient's norm, Alert , Oriented to Person Place, Time - [place] Coma Scale Best Eye Response: 4 - Spontaneous Best Motor Response: 6 - Obeys Commands Best Verbal Response: 5 - Oriented Coma Scale Total: 15 Diagnostics - Vital Signs Vital Signs Temp Pulse Resp BP Pulse Ox 05/15/17 13:48 68 98 05/15/17 13:46 98.8 F 67 18 130/49 98 - Laboratory Lab Statement: Any lab studies that have been ordered have been reviewed, and results considered in the medical decision making process. - Radiology left foot Xray Interpretation: No Acute Changes - Bone density appears decreased throughout. No fracture or dislocation evident. Unremarkable soft tissue contours. Radiology Interpretation Completed By: Radiologist - CT brain CT Interpretation: No Acute Changes - 1. NO ACUTE INTRACRANIAL PATHOLOGY. 2. THERE IS PROMINENCE OF THE EXTRA-AXIAL SPACES ALONG THE FRONTAL LOBES BILATERALLY WHICH MAY REFLECT VOLUME LOSS VERSUS CHRONIC SUBDURAL HYGROMAS. THIS IS SIMILAR TO THE PREVIOUS EXAMINATION. 3. EVIDENCE OF REMOTE INFARCT OF THE RIGHT MCA TERRITORY. 4. ATELECTASIS OF THE SPHENOID SINUS WITH AN AIR-FLUID LEVEL, SUGGESTIVE OF ACUTE ON CHRONIC SINUSITIS IN THE CORRECT CLINICAL SETTING. CT Interpretation Completed By: Radiologist Re-Evaluation - Re-Evaluation First Eval Re-Evaluation Time: 15:30 Change: Improved - still feeling fine, no changes, updated on imaging and ready to be d/c Adult Trauma Course/Dx - Course Course Of Treatment: patient is without complaints. feels fine. states she slid out of wheelchair and it tipped hitting her head on the wall. CT brain obtained due to patient's trauma and anticoagulant use. left foot xray also obtained due to trauma and due to patient having decreased sensation due to MS. no signs of trauma, normal physical exam. Xray and CT negative for any acute changes. No other complaints or concerns. A&Ox3 and patients normal neuro exam/mental status. Follow up. Aware of worsening signs and symptoms to watch out for. - Diagnoses Differential Diagnosis/HQI/PQRI: Positive: Contusion(s), Fracture, Dislocation, Sprain, Strain Provider Diagnoses: Head injury, Foot contusion, Accident due to mechanical fall without injury, Normal exam Discharge - Discharge Plan Condition: Stable Disposition: HOME Patient Education Materials: Head Injury (ED), Contusion in Adults (ED) Referrals: Osmany Suh NP [Primary Care Provider] - Additional Instructions: Continue to wear braces as directed. Any new or worsening symptoms please seek medical attention, return to ED. Tylenol as needed for any pain or discomfort.
--- NOTE | 2017-05-15 14:48 | RAD ---
HISTORY: Head injury, anticoagulation COMPARISONS: August 13, 2015 TECHNIQUE: Multiple contiguous axial CT scans were obtained of the head without intravenous contrast. FINDINGS: HEMORRHAGE/INFARCT: There is no hemorrhage or acute infarct. MASSES/SHIFT: There is no mass or shift. EXTRA-AXIAL SPACES: There is prominence of the extra-axial spaces along the frontal convexities bilaterally , similar to the previous examination. SULCI AND VENTRICLES: There is diffuse and proportional enlargement of the sulci and ventricles. CEREBRUM: There is right inferior frontal and anterior insular encephalomalacia consistent with remote infarct, similar to the previous examination. BRAINSTEM: There are no focal parenchymal abnormalities. CEREBELLUM: There is a chronic lacunar infarct of the right inferior cerebellum. VESSELS: The vessels are grossly normal. PARANASAL SINUSES: There is opacification of the sphenoid sinus with an air-fluid level. The sphenoid sinus is atelectatic. ORBITS: The orbits are unremarkable. BONES AND SOFT TISSUE: No bone or soft tissue abnormalities are noted. OTHER: None IMPRESSION: 1. NO ACUTE INTRACRANIAL PATHOLOGY. 2. THERE IS PROMINENCE OF THE EXTRA-AXIAL SPACES ALONG THE FRONTAL LOBES BILATERALLY WHICH MAY REFLECT VOLUME LOSS VERSUS CHRONIC SUBDURAL HYGROMAS. THIS IS SIMILAR TO THE PREVIOUS EXAMINATION. 3. EVIDENCE OF REMOTE INFARCT OF THE RIGHT MCA TERRITORY. 4. ATELECTASIS OF THE SPHENOID SINUS WITH AN AIR-FLUID LEVEL, SUGGESTIVE OF ACUTE ON CHRONIC SINUSITIS IN THE CORRECT CLINICAL SETTING.
[2017-05-15 16:08] VITALS: BP 121/59
== END 2017-05-15 16:04 | disposition home or self-care (01) ==
LOC: ED 13:38
DX: S09.90XA Unspecified injury of head, initial encounter (principal); S90.32XA Contusion of left foot, initial encounter; W05.0XXA Fall from non-moving wheelchair, initial encounter; Y92.9 Unspecified place or not applicable; G35 Multiple sclerosis; Z86.73 Personal history of transient ischemic attack (TIA), and cerebral infarction without residual deficits; I48.91 Unspecified atrial fibrillation; E78.00 Pure hypercholesterolemia, unspecified
CPT/HCPCS: 70450; 99282

== ENCOUNTER 2017-11-25 09:11 | Emergency (ER) | payer MEDICARE, OTHER ==
--- NOTE | 2017-11-25 09:47 | ED ---
GI/ HPI - HPI Summary HPI Summary: This patient is a 77 year old F BIBA to [facility] accompanied by her son, Eleazar, from [facility] for re-adjustment of her hsu catheter. [facility] staff was unable to insert the hsu catheter today and was concerned as sediment was found in the patients urine recently. Son reports a history of frequent UTIs, often presenting in behavior changes. He states her behavior and personality is normal for her today. Patient has no complaints at this time. Patient denies abdominal pain, n/v/d, SOB, CP, cough, rhinorrhea, and fever. Denies dysuria and hematuria. Son states she is wheelchair bound. PMHx of MS. Medications and Allergies reviewed. - History of Current Complaint Chief Complaint: EDUrogenitalProblems Time Seen by Provider: 11/25/17 09:18 Stated Complaint: CATH DISCOMFORT Hx Obtained From: Patient, Medical Records Onset/Duration: Started Hours Ago Pain Intensity: 0 Location of Pain: None Associated Signs and Symptoms: Positive: Negative - Additional Pertinent History Primary Care Physician: DEANN - Allergy/Home Medications Allergies/Adverse Reactions: Allergies Allergy/AdvReac Type Severity Reaction Status Date / Time amoxicillin [From Augmentin] Allergy Unknown Verified 11/25/17 09:56 Reaction Details carbamazepine [From Tegretol] Allergy Unknown Verified 11/25/17 09:56 Reaction Details clavulanic acid Allergy Unknown Verified 11/25/17 09:56 [From Augmentin] Reaction Details digoxin Allergy Unknown Verified 11/25/17 09:56 Reaction Details phenytoin [From Dilantin] Allergy Unknown Verified 11/25/17 09:56 Reaction Details rivaroxaban [From Xarelto] Allergy Unknown Verified 11/25/17 09:56 Reaction Details Home Medications: Home Medications Amiodarone HCl [Amiodarone HCl-] 100 mg PO DAILY 11/25/17 [History Confirmed 03/02] PMH/Surg Hx/FS Hx/Imm Hx Endocrine/Hematology History: Denies: Hx Diabetes, Hx Systemic Lupus Erythematosus Cardiovascular History: Reports: Hx Atrial Fibrillation, Hx Hypercholesterolemia , Hx Hypotension Denies: Hx Congestive Heart Failure, Hx Hypertension, Hx Pacemaker/ICD Respiratory History: Denies: Hx Asthma History: Reports: Other Problems/Disorders - urinary retention, chronic hsu Denies: Hx Dialysis, Hx Renal Disease Musculoskeletal History: Reports: Other Musculoskeletal History - MS Denies: Hx Rheumatoid Arthritis Sensory History: Reports: Hx Contacts or Glasses Denies: Hx Hearing Aid Opthamlomology History: Reports: Hx Contacts or Glasses Neurological History: Reports: Hx CVA, Hx Seizures, Other Neuro Impairments/ Disorders - MS Psychiatric History: Reports: Hx Panic Disorder - ANXIETY - Cancer History Cancer Type, Location and Year: breast biopsy, benign Hx Chemotherapy: No - Surgical History Surgery Procedure, Year, and Place: TONSILECTOMY. TUBAL LIGATON. BREAST BIOPSY -BENIGN Hx Anesthesia Reactions: No Infectious Disease History: No Infectious Disease History: Reports: Hx Clostridium Difficile Denies: Traveled Outside the [place] in Last 30 Days - Family History Known Family History: Positive: Cardiac Disease - Mother: TIA. Father: CVA, CHF - Social History Alcohol Use: None Hx Substance Use: No Substance Use Type: Reports: None Smoking Status (MU): Never Smoked Tobacco Review of Systems Negative: Fever, Chills Negative: Erythema Negative: Sore Throat Negative: Chest Pain Negative: Shortness Of Breath, Cough Negative: Abdominal Pain, Vomiting, Diarrhea, Nausea Positive: other - dislodged hsu catheter Negative: Myalgia, Edema Negative: Rash Neurological: Negative - dizziness All Other Systems Reviewed And Are Negative: Yes Physical Exam - Summary Physical Exam Summary: Constitutional: Well-developed, Well-nourished, Alert. (-) Distressed, urine in hsu catheter tubing with cloudy sediment Skin: Warm, Dry HENT: Normocephalic; Atraumatic Eyes: Conjunctiva normal Neck: Musculoskeletal ROM normal neck. (-) JVD, (-) Stridor, (-) Tracheal deviation Cardio: Rhythm regular, rate normal, Heart sounds normal; Intact distal pulses; The pedal pulses are 2+ and symmetric. Radial pulses are 2+ and symmetric. (-) Murmur Pulmonary/Chest wall: Effort normal. (-) Respiratory distress, (-) Wheezes, (-) Rales Abd: Soft, (-) epigastric tenderness, (-) Distension, (-) Guarding, (-) Rebound Musculoskeletal: (-) Edema, minimal strength in lower extremities Lymph: (-) Cervical adenopathy Neuro: Alert, Oriented x3 Psych: Mood and affect Normal Triage Information Reviewed: Yes Vital Signs On Initial Exam: Initial Vitals Temp Pulse Resp BP Pulse Ox 97.5 F 64 16 134/73 99 18 09:21 1218 09:21 18 09:21 18 09:21 11/25/17 09:21 Vital Signs Reviewed: Yes Diagnostics - Vital Signs Vital Signs Temp Pulse Resp BP Pulse Ox 11/25/17 09:21 97.5 F 64 16 134/73 99 - Laboratory Result Diagrams: 11/25/17 11:25 11/25/17 11:25 Lab Statement: Any lab studies that have been ordered have been reviewed, and results considered in the medical decision making process. Re-Evaluation - Re-Evaluation First Re-Evaluation Time: 13:37 Change: Improved - Patient is feeling better and would like to go back to her half-way facility. GIGU Course/Dx - Course Course Of Treatment: 77 year old F CALI to [facility] accompanied by her son, Eleazar, from [facility] for re-adjustment of her hsu catheter. [facility] staff was unable to insert the hsu catheter today and was concerned as sediment was found in the patients urine recently. Son reports a history of frequent UTIs, often presenting in behavior changes. He states her behavior and personality is normal for her today. Patient has no complaints at this time. Bloodwork and UA obtained and indicative of a UTI. Patient is given 1L of IVF. Patient's catheter was upsized. Patient will be discharged to her half-way facility with a prescrition for Keflex. Patient is agreeable with this plan. - Diagnoses Provider Diagnoses: Obstructed Hsu catheter, UTI (urinary tract infection) Discharge - Sign-Out/Discharge Documenting (check all that apply): Patient Departure - discharge - Discharge Plan Condition: Stable Disposition: [facility]ITENTIARY FACILITY Prescriptions: Cephalexin CAP* [Keflex CAP*] 500 mg PO QID #28 cap Patient Education Materials: Catheter-associated Urinary Tract Infection (ED) Referrals: Osmany Suh NP [Primary Care Provider] - Additional Instructions: RETURN TO THE EMERGENCY DEPARTMENT FOR CHANGING OR WORSENING SYMPTOMS. - Attestation Statements Document Initiated by Scribe: Yes Documenting Scribe: Mary Corado Provider For Whom Scribe is Documenting (Include Credential): eLonardo Marcelino MD Scribe Attestation: Mary Spain, scribed for Leonardo Marcelino MD on 11/25/17 at 1505.
[2017-11-25] MEDS ORDERED: NS 0.9% 1000 ML* 1,000 ML IV ONE (10:39)
[2017-11-25 11:40] LABS: ABS Basophils 0.1 10^3/ul (0-0.2); ABS Eosinophils 0.1 10^3/ul (0-0.6); ABS Lymphocytes 0.8 10^3/ul (1.0-4.8); ABS Monocytes 0.5 10^3/ul (0-0.8); ABS Neutrophils 5.7 10^3/ul (1.5-7.7); ABS Nucleated RBC 0 10^3/ul; Hematocrit 36 % (35-47); Hemoglobin 12.3 g/dl (12.0-16.0); Lymphocyte % 11.1 % (25-47); Mean Corpuscular HGB Conc 34 g/dl (31-36); Mean Corpuscular Hemoglobin 31 pg (27-31); Mean Corpuscular Volume 90 fL (80-97); Mean Platelet Volume 6.9 um3 (7.4-10.4); Nucleated Red Blood Cells % 0; Platelet Count 265 10^3/ul (150-450); Red Cell Distribution Width 14 % (10.5-15); White Blood Count 7.3 10^3/ul (3.5-10.8)
[2017-11-25 11:53] LABS: INR 0.96 (0.77-1.02)
[2017-11-25 11:57] LABS: Urine Appearance Cloudy; Urine Blood 2+ (Negative); Urine Color Yellow; Urine Ketones Negative (Negative); Urine Protein 3+(>=500 mg/dL) (Negative); Urine Red Blood Cell 3+(>10/hpf) (Absent); Urine Specific Gravity 1.012 (1.010-1.030); Urine Urobilinogen Negative (Negative); Urine White Blood Cell 3+(>20/hpf) (Absent)
[2017-11-25 12:03] LABS: EGFR Non-African American 103.4 (>60)
[2017-11-25] MEDS ORDERED: Cephalexin CAP* 500 MG PO ONE (12:17)
[2017-11-25 12:51] VITALS: BP 149/84
--- NOTE | 2017-11-28 08:03 | ED ---
Progress - Progress Note Progress Note: Patient's final urine culture reveals greater than 100,000 Enterobacter aerogenes. Patient was started on Keflex which is ineffective against organism. She is sensitive to fluoroquinolones and Bactrim however she appears to be on an anti-epileptic medication that could be affected by for quinolone. Her renal function appears to be within normal limits and I do not see sulfa drugs listed as an allergy on her chart. Spoke with Tricia at [facility] [place]. She reports there is an on-call provider today, Shannan De La O NP. Will fax results with recommendations and Shannan will adjust medication. NOTE: pt has a hsu - recommend f/u w/urology as well. 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 Re-Evaluation - Re-Evaluation First Re-Evaluation Time: 13:37 Change: Improved - Patient is feeling better and would like to go back to her nursing home facility. Course/Dx - Course Course Of Treatment: 77 year old F CALI to [facility] accompanied by her son, Eleazar, from [facility] assisted living for re-adjustment of her hsu catheter. [facility] staff was unable to insert the hus catheter today and was concerned as sediment was found in the patients urine recently. Son reports a history of frequent UTIs, often presenting in behavior changes. He states her behavior and personality is normal for her today. Patient has no complaints at this time. Bloodwork and UA obtained and indicative of a UTI. Patient is given 1L of IVF. Patient's catheter was upsized. Patient will be discharged to her nursing home facility with a prescrition for Keflex. Patient is agreeable with this plan. - Diagnoses Provider Diagnoses: Obstructed Hsu catheter, UTI (urinary tract infection) Discharge - Sign-Out/Discharge Documenting (check all that apply): Post-Discharge Follow Up - Discharge Plan Condition: Stable Disposition: HALFWAY FACILITY Prescriptions: Cephalexin CAP* [Keflex CAP*] 500 mg PO QID #28 cap Patient Education Materials: Catheter-associated Urinary Tract Infection (ED) Referrals: Osmany Suh NP [Primary Care Provider] - Additional Instructions: RETURN TO THE EMERGENCY DEPARTMENT FOR CHANGING OR WORSENING SYMPTOMS. - Billing Disposition and Condition Condition: STABLE Disposition: [facility]
== END 2017-11-25 13:27 ==
LOC: ED 09:11
DX: T83.091A Other mechanical complication of indwelling urethral catheter, initial encounter (principal); N39.0 Urinary tract infection, site not specified; Z87.440 Personal history of urinary (tract) infections; Y84.6 Urinary catheterization as the cause of abnormal reaction of the patient, or of later complication, without mention of misadventure at the time of the procedure; I48.91 Unspecified atrial fibrillation; E78.00 Pure hypercholesterolemia, unspecified; G35 Multiple sclerosis
CPT/HCPCS: 36415; 80053; 81003; 81015; 83605; 84484; 85025; 85610; 85730; 87040; 87077; 87086; 87186; 96374; 99284; A9270-GY

== ENCOUNTER 2018-02-05 19:24 | Inpatient (IN) | payer MEDICARE, MEDICAID ==
--- OUTSIDE RECORDS SUMMARY | 2018-02-05 19:37 | XMS REPORT ---
:1940 External Reference #:[id number] Author Organization [facility] Address [address] [place] [address] Phone [phone] Care Team Providers Name Role Phone Miguel Ángel Montez M.D. Care Team Information Medical Customer Service Representative Unavailable Payers Type Date Identification Numbers Payment Provider Subscriber Medicare Primary Policy Number: [id number] Medicare Zaynab J Martínezchristophercarolina PayID: [id number] [address] [place] [address] Commercial Policy Number: [id number] [facility] Zaynab Amezquitacarolina PayID: [id number] [address] [place] [address] Medigap Part B Expires: 2000 Policy Number: [facility] Zaynab Enriquez Shoshana [id number] PayID: [id number] [address] [place] [address] Problems Date Description Provider Status Onset: 04/19/2014 Secondary progressive multiple sclerosis Jennifer Mack M.D. Active Onset: 04/19/2014 Trigeminal neuralgia Jennifer Mack M.D. Active Note: left: 2003, 2011, and occasional ongoing symptoms. Onset: 04/19/2014 Spasticity Jennifer Mack M.D. Active Onset: 11/02/2015 Atrial fibrillation Miguel Ángel Montez M.D. Active Onset: 11/02/2015 H/O: TIA Miguel Ángel Montez M.D. Active Onset: 12/05/2016 Mild cognitive disorder Jennifer Mack M.D. Active Note: MoCA: Nov 2016: Onset: 12/05/2016 Ischemic stroke Jennifer Mack M.D. Active Note: Right frontal 05/2015: Afib Family History Date Family Member(s) Problem(s) Comments Father Cerebrovascular Accident (CVA) : (age 72 Years) Father due to CHF Father Congestive Heart Failure (CHF) Mother Stroke : (age 93 Years) Mother due to Stroke TIA Siblings 1 Social History Type Date Description Comments Lives With Assisted living [facility] Occupation Retired Occupation [employer] Cigarette Use Never Smoked Cigarettes was exposed to secondhand smoke ETOH Use Rarely consumes alcohol Smoking Patient has never smoked Recreational Drug Use Denies Drug Use Daily Caffeine Consumes on average 1 cup of or hot chocolate hot tea per day Exercise Type/Frequency Exercises regularly Allergies, Adverse Reactions, Alerts Date Description Reaction Status Severity Comments 04/19/2014 Augmentin active 04/19/2014 Tegretol hallucinations/confusio active 2004 n 04/19/2014 Dilantin hallucinations/confusio active exposed at same time as n tegretol 2004 08/21/2017 Digoxin active 08/21/2017 Xarelto active Medications Medication Date Status Form Strength Qnty SIG Indications Ordering Provider Copaxone Active Kit 20mg/ml inject 20mg Unknown /0000 (1ml) under the skin daily Tizanidine HCL Active Capsules 2mg 1 tab by Unknown /0000 mouth once a day as needed Metoprolol Active Tablets ER 25mg 1 by mouth Unknown Succinate ER /0000 24HR at bedtime Eliquis Active Tablets 5mg 1 by mouth Unknown /0000 twice a day Senna S Active Tablets 8.6-50mg 2 tablet by Unknown /0000 mouth by mouth twice daily Tylenol Extra Active Tablets 500mg 2 by mouth Unknown Strength /0000 twice a day, as needed Tylenol Extra Active Tablets 500mg 2 tab by Unknown Strength /0000 mouth bid Oxcarbazepine Active Tablets 300mg 1 tab by Unknown /0000 mouth twice a day Ranitidine HCL Active Capsules 150mg take one Unknown /0000 capsule by mouth once a day Tizanidine HCL Active Tablets 2mg 1 by mouth Unknown /0000 at bedtime, and once a day prn muscle spasm. Amiodarone HCL 00 Active Tablets 100mg 1 by mouth Unknown /0000 every day Cyanocobalamin Active Solution 1000mcg/M inject Unknown /0000 L every month Vitamin D-3 Hx Tablets 14525Lbrc one cap by Unknown /0000 mouth every - month 05/14 Aspirin Hx Tablets 81mg 1 by mouth Unknown /0000 every day - 08/11 Docusate Sodium Hx Capsules 100mg 2 by mouth Unknown /0000 daily - 11/25 Magnesium Oxide Hx Tablets 400mg 1 by mouth Unknown /0000 every day - 12/25 Oxybutynin Hx Tablets ER 5mg 1 by mouth Unknown Chloride ER /0000 24HR every day - 11/25 Mycophenolate Hx Tablets 500mg 1 by mouth Unknown Mofetil /0000 twice a day - 05/14 Tizanidine HCL Hx Capsules 4mg 1 tab by Unknown /0000 mouth twice - daily 07/12 Polyethylene Hx Powder 3350NF give 17 gm Unknown Glycol 3350 /0000 in liquid - of choice 11/25 by mouth /2016 every day as needed Alprazolam Hx Tablets 0.25mg 1 by mouth Unknown /0000 once a day - as needed 08/20 Abram-Gest Hx Chewtabs 500mg as needed Unknown Antacid /0000 - 05/14 Gabapentin Hx Capsules 300mg 1 by mouth Unknown /0000 every - morning for 08/11 Acetaminophen Hx Suppository 650mg 1 rectally Unknown /0000 every 6 - hours as 11/25 needed for /2016 minor pain or elevated temp Acetaminophen Hx Tablets 325mg 2 by mouth Unknown /0000 four times - a day as 11/25 Bisacodyl Hx Suppository 10mg 10 mg Unknown /0000 single - suppository 11/[address] 20mg 1 by mouth Unknown /0000 every day - 05/14 Zofran Hx Tablets 8mg 1 tab every Unknown /0000 8 hours as - needed 08/11 Amiodarone HCL Hx Tablets 200mg 1 by mouth Unknown /0000 every day - 10/16 Gabapentin Hx Capsules 100mg 1 cap. by Unknown /0000 mouth bid - 03/16 Miralax Hx Powder 3350NF 17 gm every Unknown /0000 day mixed - w/ 8 oz 11/25 water/juice Transderm-Scop Hx Patches 72HR 1mg/3Days apply one Unknown (1.5 MG) / patch - behind ear 01/07 hours Vitamin D3 Hx Capsules 86475Wxhp one by Unknown /0000 mouth once - a month 04/08 Milk Of Hx Suspension 400mg/5ML 30 Unknown Magnesia / milliliters - by mouth 04/08 day at bedtime as needed Vitamin B-12 Hx Liquid 1000mcg/1 inject 1000 Unknown /0000 ML mcg once a - month 09/10 Vital Signs Date Vital Result Comment 01/08/2018 Weight 161.12 lb Heart Rate 78 /min BP Systolic Sitting 130 mmHg BP Diastolic Sitting 78 mmHg Respiratory Rate 15 /min 09/11/2017 Weight 167.00 lb Heart Rate 72 /min BP Systolic 114 mmHg BP Diastolic 72 mmHg Respiratory Rate 16 /min 08/21/2017 Heart Rate 66 /min BP Systolic Sitting 120 mmHg lue reg cuff BP Diastolic Sitting 70 mmHg lue reg cuff Ejection Fraction 55-60% echo 05/23/2015 05/22/2017 Heart Rate 64 /min BP Systolic 124 mmHg BP Diastolic 74 mmHg Respiratory Rate 14 /min 04/10/2017 Weight 162.00 lb Heart Rate 68 /min BP Systolic Sitting 128 mmHg BP Diastolic Sitting 68 mmHg 12/26/2016 Heart Rate 66 /min BP Systolic Sitting 92 mmHg BP Diastolic Sitting 60 mmHg Respiratory Rate 16 /min 12/05/2016 Heart Rate 64 /min BP Systolic Sitting 98 mmHg BP Diastolic Sitting 68 mmHg Respiratory Rate 16 /min 11/26/2016 Weight 169.50 lb per [place] 11/17/2016 Heart Rate 60 /min BP Systolic Sitting 98 mmHg Lue reg cuff BP Diastolic Sitting 66 mmHg Lue reg cuff Respiratory Rate 16 /min Ejection Fraction 55-60% 05/23/2015-echo 06/09/2016 Heart Rate 62 /min BP Systolic Sitting 92 mmHg BP Diastolic Sitting 58 mmHg Respiratory Rate 17 /min 11/02/2015 Weight 157.25 lb per [place] 09/08/15 Heart Rate 70 /min BP Systolic Sitting 90 mmHg LA reg cuff BP Diastolic Sitting 58 mmHg LA reg cuff Respiratory Rate 16 /min Ejection Fraction 55-60% 05/23/15 09/13/2015 Heart Rate 76 /min irreg BP Systolic Sitting 88 mmHg Lue, reg cuff BP Diastolic Sitting 60 mmHg Lue, reg cuff BP Systolic Recheck 86 mmHg Lue BP Diastolic Recheck 60 mmHg Lue Respiratory Rate 16 /min Ejection Fraction 55-60% As of 06/02/15 echo 01/31/2015 Heart Rate 62 /min BP Systolic Sitting 102 mmHg BP Diastolic Sitting 60 mmHg Respiratory Rate 16 /min 09/07/2014 Heart Rate 64 /min BP Systolic Sitting 130 mmHg BP Diastolic Sitting 76 mmHg Respiratory Rate 16 /min 06/22/2014 Heart Rate 56 /min BP Systolic Sitting 128 mmHg BP Diastolic Sitting 70 mmHg Respiratory Rate 16 /min 04/19/2014 Heart Rate 56 /min BP Systolic Sitting 120 mmHg BP Diastolic Sitting 68 mmHg Respiratory Rate 16 /min Results Test Date Test Result H/L Range Note Laboratory test finding 12/09/2016 TSH (Thyroid Stim 2.55 mcIU/mL 0.34- 5.60 Horm) Free T4 (Free Thyroxine) 1.26 ng/dL High 0.61-1.12 Vitamin B12 And Folate Serum 12/09/2016 Vitamin B12 279 pg/mL 180-914 1 Folic Acid (Folate) 11.56 ng/mL >3.99 Basic Metabolic Panel 05/02/2014 Sodium 134 mmol/L 133-145 Potassium 4.8 mmol/L 3.5-5.0 Chloride 105 mmol/L 101-111 Co2 Carbon Dioxide 25 mmol/L 22-32 Anion Gap 4 mmol/L 2-11 Glucose 90 mg/dL 70-100 Blood Urea Nitrogen 13 mg/dL 6-24 Creatinine 0.87 mg/dL 0.51-0.95 BUN/Creatinine Ratio 14.9 8-20 Calcium 8.5 mg/dL Low 8.6-10.3 Egfr Non- 64.0 >60 Egfr 82.3 >60 2 Liver Function Panel 05/02/2014 Total Protein 4.9 g/dL Low 6.4-8.9 Albumin 3.3 g/dL 3.2-5.2 Globulin 1.6 g/dL Low 2-4 Albumin/Globulin Ratio 2.1 1-3 Total Bilirubin 0.40 mg/dL 0.2-1.0 Direct Bilirubin 0.00 mg/dL Low 0.03-0.18 Indirect Bilirubin (SEE NOTE) mg/dL 0.3-1.0 3 Alkaline Phosphatase 98 U/L 34-104 Alt 5 U/L Low 7-52 Ast 11 U/L Low 13-39 1 Normal Range 180 to 914 Indeterminate Range 145 to 180 Deficient Range <145 2 Because ethnic data is not always readily available, this report includes an eGFR for both -Americans and non- Americans. The National Kidney Disease Education Program (NKDEP) does not endorse the use of the MDRD equation for patients that are not between the ages of 18 and 70, are , have extremes of body size, muscle mass, or nutritional status, or are non- or non-. According to the National Kidney Foundation, irrespective of diagnosis, the stage of the disease is based on the level of kidney function: Stage Description GFR(mL/min/1.73 m(2)) 1 Kidney damage with normal or decreased GFR 90 2 Kidney damage with mild decrease in GFR 60-89 3 Moderate decrease in GFR 30-59 4 Severe decrease in GFR 15-29 5 Kidney failure <15 (or dialysis) 3 Unable to calculate Ind Bili as D Bili is <0.1 Procedures Date CPT Code Description Status 08/21/2017 37930 EKG Tracing & Interpretation Completed 11/26/2016 09640 EKG Tracing & Interpretation Completed 10/18/2015 69460 Holter Monitor Review (24 hr)dr review & interp only Completed 10/15/2015 56148 ECG Monitor/Recording W/Visual Superimposition Scanning Completed 09/13/2015 90671 EKG Tracing & Interpretation Completed 08/23/2015 41530 EKG, Interpretation Only Completed 08/15/2015 05285 EKG, Interpretation Only Completed 08/14/2015 21047 EEG Recording Awake & Asleep Completed 05/23/2015 33846 ECHO Transthorasic Realtime 2D W Doppler & Color Flow Completed Hosp 04/26/2013 63753 EKG, Interpretation Only Completed 04/25/2013 63700 EKG, Interpretation Only Completed 04/22/2013 34533 EKG, Interpretation Only Completed 04/21/2013 89131 EKG, Interpretation Only Completed 04/18/2013 62420 ECHO Transthorasic Realtime 2D W Doppler & Color Flow Completed Hosp 04/17/2013 01746 EKG, Interpretation Only Completed Encounters Type Date Location Provider CPT E/M Dx Office Visit 01/08/2018 11:30a [facility] Jennifer Mack M.D. 32736 G35 Services Of [facility] Giver G50.0 R41.89 N39.0 E87.1 E55.9 Office Visit 09/11/2017 10:45a [facility] Jennifer Mack M.D. 52357 G35 Services [facility] G50.0 R41.89 E55.9 Office Visit 08/21/2017 10:30a [facility] Miguel Ángel Montez, 58675 I48.91 Marty Hernandez Office Visit 05/22/2017 10:30a [facility] Jennifer Mack M.D. 78813 G35 Services Of [facility] G50.0 R41.89 E55.9 N39.0 Office Visit 04/10/2017 11:30a [facility] Jennifer Mack M.D. 91294 G35 Services Of [facility] Giver G50.0 R41.89 E55.9 Office Visit 12/26/2016 11:00a [facility] Jennifer Mack M.D. 98229 G50.0 Services Of Child Care Giver G35 R41.89 Office Visit 12/13/2016 8:27a [facility], [place] [address] G50.0 Hospitalists G35 I48.91 Z86.73 Office Visit 12/12/2016 10:59a [facility] Mohan Rahman, 08306 G50.0 Mary G35 Office Visit 12/12/2016 8:26a [facility],[place] [address] G50.0 Hospitalists G35 I48.91 Z86.73 Office Visit 12/11/2016 8:25a [facility],[place] [address] I48.91 Hospitalists G35 G50.0 Z86.73 Office Visit 12/05/2016 11:00a [facility] Jennifer Mack M.D. 84561 G35 Services Of [facility] R41.89 G50.0 Office Visit 11/26/2016 11:45a [facility] Markie Montez, 76475 I48.0 Child Care Giver M.D. Office Visit 06/09/2016 11:30a [facility] Jennifer Mack M.D. 09757 G35 Services [facility] Z86.73 Office Visit 11/02/2015 3:15p [facility] Markie Montez, 47492 I48.0 Child Care Giver M.D. G45.9 Office Visit 09/13/2015 12:45p [facility] Markie Montez, 16107 G45.9 [facility] M.D. I48.1 Office Visit 08/24/2015 12:34p [facility],pc Ruth Roche, 19140 G45.9 Hospitalists D.O. G35 I48.91 Office Visit 08/23/2015 3:30p [facility] [address] M.D. 79606 I48.0 I49.5 Office Visit 08/23/2015 12:33p [facility],[place] [address] G45.9 Hospitalists G35 I48.91 Office Visit 08/22/2015 4:01p [facility] Sherman Mccrary M.D. 81116 I48.91 Child Care Giver G45.9 Office Visit 08/22/2015 12:33p [facility],[place] [address] G35 Hospitalists G45.9 I48.91 Office Visit 08/21/2015 4:28p [facility] Of Miguel Ángel Montez, 10007 I48.91 Child Care Giver M.D. Office Visit 08/21/2015 12:32p [facility] [address] G45.9 Hospitalists G35 I48.91 Office Visit 08/20/2015 12:48p [facility] Lobo Keane, 47754 G45.9 Hospitalists M.DDayton I48.91 G35 Office Visit 08/19/2015 12:48p [facility] Lobo Keane, 53151 G45.9 Hospitalists M.D. I48.91 G35 Office Visit 08/19/2015 4:32p [facility] Miguel Ángel Montez, 15061 I48.91 Child Care Giver M.D. Office Visit 08/18/2015 12:47p [facility] Lobo Keane, 29525 G45.9 Hospitalists M.D. I48.91 G35 Office Visit 08/18/2015 12:46p [facility] 96065 I48.91 Child Care Giver M.D. G45.9 Office Visit 08/17/2015 12:47p [facility] Lobo Keane, 53824 G45.9 Hospitalists M.D. I48.91 G35 Office Visit 08/16/2015 12:46p [facility] Lobo Keane, 17830 G45.9 Hospitalists M.D. I48.91 G35 Office Visit 08/15/2015 12:45p [facility] Ruth Roche, 47247 G45.9 Hospitalists D.O. I48.91 G35 Office Visit 08/15/2015 10:00a [facility] [address] Z86.73 R53.1 N39.0 G35 Office Visit 08/14/2015 12:44p [facility] Ruth Roche, 25639 G45.9 Hospitalists D.O. I48.91 G35 Office Visit 08/14/2015 9:57a [facility] [address] R53.1 Z86.73 N39.0 G35 R94.01 Office Visit 08/13/2015 12:43p [facility] Riley Demarco M.D. 47378 G45.9 Hospitalists G35 Office Visit 05/25/2015 10:15a [facility],[place] [address] I63.9 Hospitalists G35 I48.0 N39.0 Office Visit 05/24/2015 10:14a [facility] Trang Patton, 04398 I63.9 Assoc, [facility] Hospitalists G35 I48.0 N39.0 Office Visit 05/24/2015 10:26a [facility] [address] I63.411 G35 Office Visit 05/23/2015 10:45a [facility] Trang RoweOanhFreeman, 94282 I63.9 Assoc,pc [employer] Hospitalists G35 I48.0 N39.0 Office Visit 05/23/2015 10:25a [facility] [address] I63.411 G35 Office Visit 01/31/2015 2:00p [facility] Jennifer Mack M.D. 11044 G35 Services Of [facility] Office Visit 09/07/2014 11:30a [facility] Jennifer Mack M.D. 37102 340 Services [facility] 728.85 Office Visit 06/22/2014 10:00a [facility] Jennifer Mack M.D. 31076 340 Services [facility] Office Visit 04/19/2014 10:00a [facility] Jennifer Mack M.D. 39411 340 [facility] 728.85 799.59 Office Visit 04/24/2013 8:23a [facility] [address], [address] 427.31 M.D. 427.81 340 Office Visit 04/23/2013 3:59p [facility] [address], [address]361 427.31 M.D. 427.81 Office Visit 04/21/2013 2:45p [facility] [address], [address]657 427.31 M.D. 427.31 Plan of Care Future Appointment(s):08/06/2018 11:00 am - Jennifer Mack M.D. at [facility]01/08/2018 - Jennifer Mack M.D.G35 Multiple sclerosisFollow up:6 months (30 min)Recommendations:continued use of splint and work on range of wqaznoleG50.0 Trigeminal pujvgjlstM67.89 Oth symptoms and signs w cognitive functions and sujowbyccX39.0 Urinary tract infection, site not specifiedRecommendations:Proteus mirabilis is growing out of the urine as of this morning (> 100,000). Sensitivities to antibiotics have not been reported. Have group home medical staff watch for results and treat accordingly.E87.1 Hypo-osmolality and hyponatremiaNew Labs:CMP PanelRecommendations:repeat metabolic panel. Na was low in ERE55.9 Vitamin D deficiency, unspecifiedRecommendations:suggest adding 2000 IU each day
[2018-02-05] MEDS ORDERED: NS 0.9% 1000 ML* 1,000 ML IV ONE (19:45)
[2018-02-05] MEDS ORDERED: Diltiazem IV* 5 MG/ML 5 ML VIAL (for loading dose/IV Push) (25 MG) IV PUSH ONE (19:45)
[2018-02-05] MEDS ORDERED: Diltiazem DRIP* 100 MG/100 ML ADDV.BAG IVPB ONE (19:45)
[2018-02-05] MEDS ORDERED: Diltiazem IV VIAL* 125 MG in NS 0.9% 100 ML* 100 ML IV SCH ×2 (21:00→22:02)
--- NOTE | 2018-02-05 21:06 | ED ---
GI/ HPI - HPI Summary HPI Summary: Pt is a 78 y/o female brought in by EMS who presents to the ED c/o catheter issues. As per son, the custodial was having an issue placing her Hsu catheter, and the pt was sent here to have it placed. Pt has been here before for a Hsu catheter placement. She was just treated for a UTI last week, and son believes it was never fully resolved. As per son, something seems off and she has had some AMS for the past 2 weeks. The past 2 nights she has been screaming. Pt denies any fever, CP, palpitations, SOB, abdominal pain, numbness , or tingling. Pts HR is 175 bpm while in the room, and she has a hx of AFib. Pt is on blood thinners. - History of Current Complaint Time Seen by Provider: 02/05/18 19:44 Stated Complaint: RAPID HEART RATE/CATHETER ISSUES Hx Obtained From: Patient, Family/Job Coach/Job Developer - Son Onset/Duration: Started Days Ago - ~1-2 weeks ago Timing: Constant Pain Intensity: 3 Associated Signs and Symptoms: Negative: Fever, Abdominal Pain Aggravating Factor(s): Nothing Alleviating Factor(s): Nothing - Additional Pertinent History Primary Care Physician: [id number] - Allergy/Home Medications Allergies/Adverse Reactions: Allergies Allergy/AdvReac Type Severity Reaction Status Date / Time amoxicillin [From Augmentin] Allergy Unknown Verified 11/25/17 09:56 Reaction Details carbamazepine [From Tegretol] Allergy Unknown Verified 11/25/17 09:56 Reaction Details clavulanic acid Allergy Unknown Verified 11/25/17 09:56 [From Augmentin] Reaction Details digoxin Allergy Rash Verified 02/05/18 23:54 phenytoin [From Dilantin] Allergy Unknown Verified 11/25/17 09:56 Reaction Details rivaroxaban [From Xarelto] Allergy Unknown Verified 11/25/17 09:56 Reaction Details PMH/Surg Hx/FS Hx/Imm Hx Endocrine/Hematology History: Denies: Hx Diabetes, Hx Systemic Lupus Erythematosus Cardiovascular History: Reports: Hx Atrial Fibrillation, Hx Hypercholesterolemia , Hx Hypotension Denies: Hx Congestive Heart Failure, Hx Hypertension, Hx Pacemaker/ICD Respiratory History: Denies: Hx Asthma History: Reports: Other Problems/Disorders - urinary retention, chronic hsu Denies: Hx Dialysis, Hx Renal Disease Musculoskeletal History: Reports: Other Musculoskeletal History - MS Denies: Hx Rheumatoid Arthritis Sensory History: Reports: Hx Contacts or Glasses Denies: Hx Hearing Aid Opthamlomology History: Reports: Hx Contacts or Glasses Neurological History: Reports: Hx CVA, Hx Seizures, Other Neuro Impairments/ Disorders - MS Psychiatric History: Reports: Hx Panic Disorder - ANXIETY - Cancer History Cancer Type, Location and Year: breast biopsy, benign Hx Chemotherapy: No - Surgical History Surgery Procedure, Year, and Place: TONSILECTOMY. TUBAL LIGATON. BREAST BIOPSY -BENIGN Hx Anesthesia Reactions: No Infectious Disease History: No Infectious Disease History: Reports: Hx Clostridium Difficile Denies: Traveled Outside the [place] in Last 30 Days - Family History Known Family History: Positive: Cardiac Disease - Mother: TIA. Father: CVA, CHF - Social History Alcohol Use: None Hx Substance Use: No Substance Use Type: Reports: None Hx Tobacco Use: No Smoking Status (MU): Never Smoked Tobacco Review of Systems Negative: Fever Negative: Palpitations, Chest Pain Negative: Shortness Of Breath Negative: Abdominal Pain Negative: other - Hsu catheter issue Negative: Paresthesia, Numbness All Other Systems Reviewed And Are Negative: Yes Physical Exam - Summary Physical Exam Summary: Appearance: chronically-ill appearing, no pain distress Skin: warm, dry, reflects adequate perfusion Head/face: normal Eyes: EOMI, WISAM, strabismus ENT: mucous membranes tacky Neck: supple, non-tender Respiratory: CTA, breath sounds diminished in bases Cardiovascular: tachycardic, irregular rhythm, pulses symmetrical, slight LE edema Abdomen: non-tender, soft, Hsu catheter in place with leaking around tube and sedimented urine Bowel Sounds: present Musculoskeletal: unable to move legs Neuro: normal, sensory motor intact, A&Ox3 Triage Information Reviewed: Yes Vital Signs On Initial Exam: Initial Vitals BP 128/98 02/05/18 19:30 Vital Signs Reviewed: Yes Diagnostics - Vital Signs Vital Signs Temp Pulse Resp BP Pulse Ox 02/05/18 19:40 102.4 F 163 20 128/98 97 02/05/18 19:31 127 99 02/05/18 19:30 128/98 - Laboratory Result Diagrams: 02/05/18 20:50 02/05/18 20:50 Lab Statement: Any lab studies that have been ordered have been reviewed, and results considered in the medical decision making process. - Radiology CXR Radiology Interpretation Completed By: ED Physician - No acute pulmonary disease. Pending official radiology report. - EKG 19:40 Cardiac Rate: Other Rate - AFib - 160 bpm EKG Rhythm: Atrial Fibrillation ST Segment: Normal Summary of EKG Findings: Nl axis Re-Evaluation - Re-Evaluation First Eval Re-Evaluation Time: 21:54 Change: Unchanged Comment: Pt still is in AFib. GIGU Course/Dx - Course Course Of Treatment: Chronically debilitated, bed ridden MS patient with mechanical complication of Hsu catheter found to have rapid atrial fibrillation. She was placed on diltiazem drip after a bolus was given. She' ll be titrated in this to control heart rate. Possible urinary infection. Pending urine. We will not change Hsu catheter until antibiotics are on board per the wishes of the hospitalist team. Patient to be admitted to the telemetry service. - Diagnoses Differential Diagnoses - Female: Other - Sepsis, rapid A. fib, UTI, pneumonia, bacteremia, UT, PE Provider Diagnoses: Rapid atrial fibrillation, Complication of Hsu catheter, Multiple sclerosis - Physician Notifications Discussed Care Of Patient With: Pamela Ambriz Time Discussed With Above Provider: 23:00 Instructed by Provider To: Admit As Inpatient - Critical Care Time Critical Care Time: 30-74 min - CCT is EXCLUSIVE of separately billable procedures. Discharge - Sign-Out/Discharge Documenting (check all that apply): Patient Departure - Admit - Discharge Plan Condition: Fair Disposition: ADMITTED TO [facility] - Billing Disposition and Condition Condition: FAIR Disposition: Admitted to [facility] - Attestation Statements Document Initiated by Yuly: Yes Documenting Joseibe: Tri Salcido Provider For Whom Yuly is Documenting (Include Credential): Devin Ferrell MD Scribe Attestation: Tri [place], scribed for Devin Ferrell MD on 02/06/18 at 0148. Scribe Documentation Reviewed: Yes Provider Attestation: The documentation as recorded by the Tri gamboa accurately reflects the service I personally performed and the decisions made by me, Devin Ferrell MD
[2018-02-05 21:08] LABS: INR 0.91 (0.77-1.02)
[2018-02-05 21:36] LABS: White Blood Count 11.4 10^3/ul (3.5-10.8)
[2018-02-05 21:45] LABS: Hematocrit 37 % (35-47); Hemoglobin 12.2 g/dl (12.0-16.0); Mean Corpuscular HGB Conc 33 g/dl (31-36); Mean Corpuscular Hemoglobin 30 pg (27-31); Mean Corpuscular Volume 92 fL (80-97); Platelet Count 167 10^3/ul (150-450); Red Blood Count 4.03 10^6/ul (4.00-5.40); Red Cell Distribution Width 15 % (10.5-15)
[2018-02-05] MEDS ORDERED: Ondansetron INJ* 2 MG/ML VIAL IV PRN (21:59)
[2018-02-05] MEDS ORDERED: Acetaminophen TAB* 325 MG PO PRN (22:00)
[2018-02-05 22:10] LABS: Monocytes % 6 % (0-7)
[2018-02-05 22:12] LABS: ABS Neutrophils 10.04 10^3/ul (1.5-7.7)
[2018-02-06] MEDS ORDERED: Digoxin IV* 0.5 MG/2 ML AMP (0.25 MG/ML) IV SLOW PU ONE
[2018-02-06] MEDS ORDERED: Diltiazem IV* 5 MG/ML 5 ML VIAL (for loading dose/IV Push) (25 MG) IV SLOW PU ONE
[2018-02-06] MEDS: cefTRIAXone(*) 1 GM in NS 0.9% 50 ML* 50 ML IVPB SCH (00:10)
[2018-02-06] MEDS: NS 0.9% 1000 ML* 1,000 ML IV SCH ×2 (00:40→11:13)
--- NOTE | 2018-02-06 02:23 | HP ---
CC: Osmany Suh NP; Dr. Jennifer Mack * ADMISSION HISTORY AND PHYSICAL: DATE OF ADMISSION: 02/05/18 PRIMARY CARE PROVIDER: Osmany Suh NP, at [facility]. MY ATTENDING WHILE IN THE HOSPITAL: Dr. Pamela Ambriz.* (DICTATED BY FRANK RIOS) OUTPATIENT NEUROLOGIST: Dr. Jennifer Mack. CHIEF COMPLAINT: Garcia leak, rapid atrial fibrillation. HISTORY OF PRESENT ILLNESS: Ms. Anna is a 78-year-old female with past medical history significant for secondary progressive MS, history of CVA, chronic indwelling Garcia catheter due to urinary retention, paroxysmal atrial fibrillation, and recurrent urinary tract infections, who presents to the hospital after 1 week ago she was treated for UTI, but then on Thursday of this week, 02/03/18, she was found to be very confused and combative raising the concern for another UTI. The patient is cognitively impaired due to her MS and is unable to very clearly elucidate her symptoms, so her history was mainly gained from her son, who has intermittent contact with her. The patient had no vital sign abnormalities [facility] at the [facility] per the son. Due to the concern for recurrent UTI, the patient was going to have her Garcia changed, but when they went to put in new Garcia, they were unable to do so successfully without a leak, so she was sent to the emergency department. While in the ambulance, she was found to be in AFib with RVR with rates up to the 160s without hypotension. The patient came to the emergency department and was again found to be in AFib with RVR. The patient was started on diltiazem drip with mild success. The patient was found to have a temperature initially of 102.4. The patient in the emergency department felt fine without lightheadedness, chest pain, shortness of breath, palpitations. The patient had no abdominal pain or back pain. The patient is a very poor historian. The patient relies very strongly on her son to give history for her. Due to concern for AFib with RVR and sepsis, we were asked to evaluate the patient for admission to the hospital. PAST MEDICAL HISTORY: Secondary progressive multiple sclerosis, history of CVA , indwelling Garcia cath due to urinary retention, recurrent UTIs, hyperlipidemia, paroxysmal atrial fibrillation, trigeminal neuralgia, anxiety, history of sacral pressure ulcer, vitamin D deficiency, vitamin B12 deficiency, and GERD. MEDICATIONS: From [facility] records: 1. Amiodarone 100 mg p.o. daily. 2. Glatiramer 20 mg subcutaneous daily. 3. Vitamin B12 1000 mcg IM monthly. 4. Eliquis 5 mg p.o. b.i.d. 5. Oxcarbazepine 300 mg p.o. b.i.d. 6. Metoprolol succinate 25 mg p.o. daily. 7. Ranitidine 150 mg p.o. daily. 8. Senna-S 1 tab p.o. b.i.d. 9. Tizanidine 2 mg p.o. daily scheduled and tizanidine 2 mg p.o. p.r.n. 10. Tylenol 1000 mg p.o. b.i.d. scheduled and Tylenol 1000 mg p.o. daily as needed. 11. Vitamin D 1000 units p.o. daily. ALLERGIES: DIGOXIN, AMOXICILLIN, VALPROIC ACID, PHENYTOIN, XARELTO; the reaction to these medications are unknown. FAMILY HISTORY: The patient's father in his sleep, presumably with an ID. The patient's mother at 93 from report of medication error. The patient has a sister who is alive and well and has only hypertension. The patient had a son who of muscular dystrophy. The patient has another son who is alive and well. SOCIAL HISTORY: The patient never smoked or drank. No use of illicit drugs. 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 The patient has been twice; once , once . The patient has 2 children, one of whom is living. Her surrogate decision maker is her son, Eleazar Anna. REVIEW OF SYSTEMS: A 14-point review of systems was reviewed with this patient and her son and were negative except as above in the HPI. PHYSICAL EXAMINATION GENERAL: The patient is a 78-year-old female, who appears stated age and sitting comfortably in bed, in no acute distress. VITAL SIGNS: At the time of evaluation, temperature 102.4, pulse rate 163, respiratory rate 20, oxygen saturation 97% on room air, blood pressure 120/98. HEENT: Head: Normocephalic, atraumatic. Sclerae anicteric. No conjunctival injection. Nasal mucosa moist. Oral mucosa moist. No pharyngeal erythema, discharge, or exudate. NECK: Supple, nontender. No lymphadenopathy. No carotid bruits auscultated. No JVD. RESPIRATORY: Clear to auscultation bilaterally. No wheezes, rhonchi, good air exchange bilaterally. CARDIAC: Irregularly irregular rhythm, fluctuating rate. Severely tachycardic. No clicks, murmurs, gallops, or rubs. Pulses are 2+ in the bilateral dorsalis pedis, posterior tibial, and radial areas. ABDOMEN: Soft, nontender, nondistended. Bowel sounds present and normoactive in all 4 quadrants. No hepatosplenomegaly. No abdominal bruits auscultated. No hepatojugular reflux. GENITOURINARY: No suprapubic or CVA tenderness. Garcia catheter intact, draining cloudy, yellow urine with small amount of blood clots. NEUROLOGIC: The patient is unable to fully cooperate with neurologic exam. The patient has exotropia with leftward gaze. No other cranial nerve deficits. The patient has contracture of the right upper extremity. The patient has 2/ 5 strength in the left upper extremity. The patient has symmetrical 3/5 strength in bilateral lower extremities. The patient's neurological exam is difficult. The patient is alert and oriented x3, but very forgetful. PSYCHIATRIC: Pleasant and cooperative. DIAGNOSTIC STUDIES/LAB DATA: White blood cell count 11.4, hemoglobin 12.2, hematocrit 37, platelet count 167. INR 0.91. Sodium 137, potassium 3.9, chloride 104, carbon dioxide 26, anion gap 7, BUN 11, creatinine 0.71, glucose 125, lactic acid 1.0, calcium 8.6. Bilirubin 0.5, AST 49, ALT 58, alkaline phosphatase 242. Troponin-I 0.03. BNP 678. Total protein 5.9, albumin 3.5, globulin 2.4. TSH 2.15. Studies: Chest x-ray shows to this author's interpretation no acute cardiopulmonary disease. Electrocardiogram shows irregularly irregular rhythm, rate of 160, QTc of 380, normal axis. No ST-segment abnormalities. No hypertrophy or enlargement. Normal R-wave progression. No blocks. ASSESSMENT AND PLAN: Impression: Ms. Anna is a 78-year-old female with past medical history significant for secondary progressive multiple sclerosis, history of cerebrovascular accident, paroxysmal atrial fibrillation, and recurrent urinary tract infections, who presents to emergency department for concerns with her Garcia and was found to be in atrial fibrillation with rapid ventricular response. The patient is currently asymptomatic; however, her rate is difficult to control. The patient will be admitted to telemetry for observation, diltiazem drip, and treatment of presumed urinary tract infection. 1. Atrial fibrillation with rapid ventricular response. The patient's heart rate is presumably staying above 120, rates up to 170. The patient's blood pressure is currently normotensive. The patient is not hypoxic. The patient has no signs of acute heart failure, although she does have an elevated BNP. The patient has a negative troponin. The patient is on diltiazem drip at 10 mg per hour after bolus of 15 mg, the patient's diltiazem drip will be increased to 15 mg an hour. She will be monitored closely. The patient has previously spontaneously cardioverted with diltiazem drip. The patient will be given fluids in case her underlying disease process is driving her atrial fibrillation and the patient will also be started on ceftriaxone to treat her presumed urinary tract infection. The patient will have a urinalysis and the patient will be continued on her apixaban and metoprolol succinate. If the patient is persistently in atrial fibrillation, Cardiology consultation should be considered in the morning with possible increase to her amiodarone or other rate-control methods as well as possible cardioversion if the patient becomes hemodynamically unstable. 2. Urinary tract infection with sepsis. The patient has an elevated temperature, elevated white blood cell count, and tachycardia. The patient's tachycardia is due to atrial fibrillation. The patient has no other signs of end-organ damage. The patient was given 1 L of fluid while in the emergency department due to an elevated BNP and normotensive blood pressure. The patient will be started on gentle fluids at this time. The patient will be started on ceftriaxone for a urinary tract infection. The patient's lactic acid is 1.0. Blood cultures and urinalysis are pending. The patient's most recent urinary tract infection was Proteus mirabilis and Streptococcus anginosus, both of which were susceptible to ceftriaxone. 3. Secondary progressive multiple sclerosis. The patient was recently seen in consultation by her neurologist, Dr. Jennifer Mack, and stable on her treatment ; however, the patient has been having increasing urinary tract infections and discussed with the family given her frequent infections and trips to hospital and given the lack of evidence for Copaxone in slowing the progression of secondary progressive multiple sclerosis, it is possible that the patient having discontinuation of her disease-modifying antirheumatic drug therapy would be appropriate. The patient was recently taken off CellCept for this reason. The patient's glatiramer will be held while in the hospital. Continue the patient's tizanidine and senna-S. 4. Trigeminal neuralgia. Continue the patient off carbamazepine. The patient was previously known to have hyponatremia on this medication which is not current issue. 5. Vitamin deficiency. Continue supplementation. 6. DVT prophylaxis. The patient is on Eliquis. 7. FEN. The patient will have fluids as above and heart-healthy diet without caffeine. 8. Code status. The patient would like to be a DNR. Her [facility] is on [facility]. 9. Disposition. The patient is on observation. TIME SPENT: Approximately 90 minutes was spent on admission of this patient, 45 of which was spent [id number] with the patient obtaining history and physical and discussing treatment plan with her and her son. This plan was discussed with my attending, Dr. Pamela Ambriz, and she is in agreement. FRANK RIOS [id number]/CPS #: [id number]
[2018-02-06 05:44] LABS: ABS Basophils 0 10^3/ul (0-0.2); ABS Eosinophils 0 10^3/ul (0-0.6); ABS Lymphocytes 0.7 10^3/ul (1.0-4.8); ABS Monocytes 1.1 10^3/ul (0-0.8); ABS Neutrophils 9.2 10^3/ul (1.5-7.7); ABS Nucleated RBC 0 10^3/ul; Eosinophil % 0.3 % (0-6); Hematocrit 35 % (35-47); Hemoglobin 11.8 g/dl (12.0-16.0); Lymphocyte % 6.1 % (25-47); Mean Corpuscular HGB Conc 34 g/dl (31-36); Mean Corpuscular Hemoglobin 31 pg (27-31); Mean Corpuscular Volume 91 fL (80-97); Mean Platelet Volume 7.2 fL (7.4-10.4); Nucleated Red Blood Cells % 0; Platelet Count 165 10^3/ul (150-450); Red Blood Count 3.84 10^6/ul (4.00-5.40); Red Cell Distribution Width 14 % (10.5-15); White Blood Count 11.1 10^3/ul (3.5-10.8)
[2018-02-06 06:02] LABS: EGFR Non-African American 97.2 (>60)
[2018-02-06] MEDS: Diltiazem IV VIAL* 125 MG in NS 0.9% 100 ML* 100 ML IV SCH ×2 (06:32→10:24)
[2018-02-06] MEDS: Amiodarone TAB* 200 MG PO SCH (09:41)
[2018-02-06] MEDS: Acetaminophen TAB* 325 MG PO SCH ×2 (09:42→20:47)
[2018-02-06] MEDS: Senna TAB PO SCH ×2 (09:43→20:47)
[2018-02-06] MEDS: Cholecalciferol TAB* 1000 UNITS PO SCH (09:44)
[2018-02-06] MEDS: Famotidine TAB* 20 MG PO SCH (09:45)
[2018-02-06] MEDS: OXcarbazepine TAB(*) 300 MG PO SCH ×2 (09:45→20:48)
[2018-02-06] MEDS: Docusate CAP* 100 MG PO SCH ×2 (11:16→20:47)
[2018-02-06] MEDS: Apixaban* 5 MG TAB PO SCH ×2 (11:16→20:47)
--- NOTE | 2018-02-06 12:36 | PN ---
Subjective Date of Service: 02/06/18 Interval History: HOSPITALIST PROGRESS NOTE Patient seen and examined at bedside. Care reviewed and d/w Charly Correa RN. She is confused, but near her baseline as per son. Asks repeatedly "What does this mean?". Offers no complaints. Family History: Unchanged from Admission Social History: Unchanged from Admission Past Medical History: Unchanged from Admission Objective Active Medications: Acetaminophen (Tylenol Tab*) 975 mg PO BID [facility] Last Admin: 02/06/18 09:42 Dose: 975 mg Acetaminophen (Tylenol Tab*) 975 mg PO DAILY PRN PRN Reason: PAIN Amiodarone HCl (Cordarone Tab*) 100 mg PO DAILY [facility] Last Admin: 02/06/18 09:41 Dose: 100 mg Apixaban (Eliquis*) 5 mg PO BID [facility] Last Admin: 02/06/18 11:16 Dose: 5 mg Cholecalciferol (Vitamin D Tab*) 2,000 units PO DAILY [facility] Last Admin: 02/06/18 09:44 Dose: 2,000 units Docusate Sodium (Colace Cap*) 100 mg PO BID [facility] Last Admin: 02/06/18 11:16 Dose: 100 mg Famotidine (Pepcid Tab*) 20 mg PO DAILY [facility]; Protocol Last Admin: 02/06/18 09:45 Dose: 20 mg Ceftriaxone Sodium 1 gm/ (Sodium Chloride) 50 mls @ 200 mls/hr IVPB Q24H [facility] Last Admin: 02/06/18 00:10 Dose: 200 mls/hr Sodium Chloride (Ns 0.9% 1000 Ml*) 1,000 mls @ 100 mls/hr IV PER RATE [facility] Last Admin: 02/06/18 11:13 Dose: 100 mls/hr Diltiazem HCl 125 mg/ Sodium (Chloride) 125 mls @ 10 mls/hr IV Q12H [facility]; Protocol Stop: 02/06/18 14:59 Last Admin: 02/06/18 10:24 Dose: 15 mls/hr Diltiazem HCl 125 mg/ Sodium (Chloride) 125 mls @ 15 mls/hr IV Q8H [facility]; Protocol Metoprolol Succinate (Toprol Xl Tab*) 25 mg PO BEDTIME [facility] Ondansetron HCl (Zofran Inj*) 4 mg IV Q6H PRN PRN Reason: NAUSEA Oxcarbazepine (Trileptal Tab(*)) 300 mg PO BID [facility] Last Admin: 02/06/18 09:45 Dose: 300 mg Senna (Senokot Tab*) 2 tab PO BID [facility] Last Admin: 02/06/18 09:43 Dose: 2 tab Tizanidine HCl (Zanaflex Tab*) 2 mg PO BEDTIME [facility] Tizanidine HCl (Zanaflex Tab*) 2 mg PO DAILY PRN PRN Reason: PAIN Vital Signs - 8 hr 02/06/18 02/06/18 07:25 11:15 Temperature 99.6 F 99.1 F Pulse Rate 60 93 Respiratory 18 16 Rate O2 Sat by Pulse 95 96 Oximetry Oxygen Devices in Use Now: None Appearance: Elderly lady lying in bed in NAD. Eyes: No Scleral Icterus Ears/Nose/Mouth/Throat: Mucous Membranes Moist Neck: Trachea Midline Respiratory: Symmetrical Chest Expansion and Respiratory Effort, Clear to Auscultation Cardiovascular: - - Normal S1 and S2, irregularly irregular Abdominal: NL Sounds; No Tenderness; No Distention Neurological: - - AAOx1 (self) Result Diagrams: 02/06/18 05:29 02/06/18 05:29 Assess/Plan/Problems-Billing Assessment: Mrs Anna is a 78yo F with PMH of MS, indwelling Garcia due to urinary retention, HLD, PAF, trigeminal neuralgia, recurrent UTIs, who presented to ED with increased confusion and fever, found to have sepsis secondary to UTI and Afib RVR. - Patient Problems (1) Sepsis Comment: - Presentation compatible with sepsis with fever, and tachycardia. - Present on admission. - Source is UTI. (2) UTI (urinary tract infection) Comment: - Garcia catheter related, present on admission. - Awaiting urine culture and renal US. - Continue Ceftriaxone #2. (3) Paroxysmal a-fib Comment: - Secondary to infection. - Continue Diltiazem drip, PO amiodarone, and increase metoprolol to 50mg/day. - Continue Apixaban. (4) Multiple sclerosis Comment: - Continue supportive care. (5) Trigeminal neuralgia of right side of face Comment: - Continue oxcarbazepine. (6) DVT prophylaxis Comment: - Apixaban. (7) DNR (do not resuscitate) Status and Disposition: Inpatient. Son updated at bedside.
[2018-02-06 12:58] LABS: Urine Appearance Turbid; Urine Blood 2+ (Negative); Urine Color Amber; Urine Ketones Negative (Negative); Urine Protein 2+(100 mg/dL) (Negative); Urine Red Blood Cell 3+(>10/hpf) (Absent); Urine Specific Gravity 1.014 (1.010-1.030); Urine Urobilinogen Negative (Negative); Urine White Blood Cell 3+(>20/hpf) (Absent)
[2018-02-06] MEDS ORDERED: Diltiazem IV VIAL* 125 MG in NS 0.9% 100 ML* 100 ML IV SCH ×5 (14:00→15:00)
[2018-02-06] MEDS ORDERED: Metoprolol Succinate XL TAB* 50 MG PO SCH ×2 (17:00→21:00)
[2018-02-06] MEDS: tiZANidine TAB* 2 MG PO SCH (20:47)
[2018-02-06] MEDS ORDERED: Metoprolol Succinate XL TAB* 25 MG PO SCH (21:00)
[2018-02-07] MEDS: cefTRIAXone(*) 1 GM in NS 0.9% 50 ML* 50 ML IVPB SCH ×2 (00:10→23:32)
[2018-02-07] MEDS: Senna TAB PO SCH ×2 (09:18→20:42)
[2018-02-07] MEDS: Acetaminophen TAB* 325 MG PO SCH ×2 (09:18→20:42)
[2018-02-07] MEDS: Apixaban* 5 MG TAB PO SCH ×2 (09:19→20:43)
[2018-02-07] MEDS: Cholecalciferol TAB* 1000 UNITS PO SCH (09:19)
[2018-02-07] MEDS: Famotidine TAB* 20 MG PO SCH (09:20)
[2018-02-07] MEDS: Docusate CAP* 100 MG PO SCH ×2 (09:20→20:43)
[2018-02-07] MEDS: Amiodarone TAB* 200 MG PO SCH (09:20)
[2018-02-07] MEDS: OXcarbazepine TAB(*) 300 MG PO SCH ×2 (09:22→20:42)
[2018-02-07] MEDS: Metoprolol Tartrate IV* 1 MG/ML 5 ML VIAL IV PRN (09:36)
[2018-02-07] MEDS ORDERED: Simethicone TAB* 80 MG TAB.CHEW PO PRN (10:21)
[2018-02-07] MEDS: Metoprolol Succinate XL TAB* 25 MG PO SCH ×2 (10:42→20:42)
--- NOTE | 2018-02-07 16:00 | PN ---
Subjective Date of Service: 02/07/18 Interval History: HOSPITALIST PROGRESS NOTE Patient seen and examined at bedside. Care reviewed and d/w Charly Correa RN. She is more awake today, but still seems to be a little confused. Offered no complaints. Family History: Unchanged from Admission Social History: Unchanged from Admission Past Medical History: Unchanged from Admission Objective Active Medications: Acetaminophen (Tylenol Tab*) 975 mg PO BID [facility] Last Admin: 02/07/18 09:18 Dose: 975 mg Acetaminophen (Tylenol Tab*) 975 mg PO DAILY PRN PRN Reason: PAIN Amiodarone HCl (Cordarone Tab*) 100 mg PO DAILY [facility] Last Admin: 02/07/18 09:20 Dose: 100 mg Apixaban (Eliquis*) 5 mg PO BID [facility] Last Admin: 02/07/18 09:19 Dose: 5 mg Cholecalciferol (Vitamin D Tab*) 2,000 units PO DAILY [facility] Last Admin: 02/07/18 09:19 Dose: 2,000 units Docusate Sodium (Colace Cap*) 100 mg PO BID [facility] Last Admin: 02/07/18 09:20 Dose: 100 mg Famotidine (Pepcid Tab*) 20 mg PO DAILY [facility]; Protocol Last Admin: 02/07/18 09:20 Dose: 20 mg Ceftriaxone Sodium 1 gm/ (Sodium Chloride) 50 mls @ 200 mls/hr IVPB Q24H [facility] Last Admin: 02/07/18 00:10 Dose: 200 mls/hr Metoprolol Succinate (Toprol Xl Tab*) 25 mg PO BID [facility] Last Admin: 02/07/18 10:42 Dose: 25 mg Metoprolol Tartrate (Lopressor Iv*) 5 mg IV Q6H PRN PRN Reason: HR>120 Last Admin: 02/07/18 09:36 Dose: 5 mg Ondansetron HCl (Zofran Inj*) 4 mg IV Q6H PRN PRN Reason: NAUSEA Oxcarbazepine (Trileptal Tab(*)) 300 mg PO BID [facility] Last Admin: 02/07/18 09:22 Dose: 300 mg Senna (Senokot Tab*) 2 tab PO BID [facility] Last Admin: 02/07/18 09:18 Dose: 2 tab Simethicone (Mylicon Tab*) 80 mg PO Q6H PRN PRN Reason: INDIGESTION Last Admin: 02/07/18 10:42 Dose: 80 mg Tizanidine HCl (Zanaflex Tab*) 2 mg PO BEDTIME [facility] Last Admin: 02/06/18 20:47 Dose: 2 mg Tizanidine HCl (Zanaflex Tab*) 2 mg PO DAILY PRN PRN Reason: PAIN Vital Signs - 8 hr 02/07/18 02/07/18 08:00 11:58 Temperature 98.3 F Pulse Rate 82 Respiratory 22 22 Rate Blood Pressure 122/57 (mmHg) O2 Sat by Pulse 98 Oximetry Oxygen Devices in Use Now: None Appearance: Elderly lady sitting up in bed in NAD. Eyes: No Scleral Icterus Ears/Nose/Mouth/Throat: Mucous Membranes Moist Neck: Trachea Midline Respiratory: Symmetrical Chest Expansion and Respiratory Effort, Clear to Auscultation Cardiovascular: RRR - Normal S1 and S2 Abdominal: NL Sounds; No Tenderness; No Distention Neurological: - - Lethargic but easier to arouse than yesterday, Ox2 (self and place) Result Diagrams: 02/06/18 05:29 02/06/18 05:29 Microbiology and Other Data: Microbiology 02/06/18 12:30 Urine Culture - Preliminary Urine Gram Negative Bacilli 02/05/18 20:51 Aerobic Blood Culture - Preliminary Blood Venous No Growth Day 1 Anaerobic Blood Culture - Preliminary No Growth Day 1 02/05/18 20:51 Aerobic Blood Culture - Preliminary Blood Venous No Growth Day 1 Anaerobic Blood Culture - Preliminary No Growth Day 1 02/06/18 02:10 Nasal Screen MRSA (PCR) - Final Nasal Mrsa Not Detected Assess/Plan/Problems-Billing Assessment: Mrs Anna is a 78yo F with PMH of MS, indwelling Garcia due to urinary retention, HLD, PAF, trigeminal neuralgia, recurrent UTIs, who presented to ED with increased confusion and fever, found to have sepsis secondary to UTI and Afib RVR. - Patient Problems (1) Sepsis Comment: - Presentation compatible with sepsis with fever, and tachycardia. - Present on admission. - Source is UTI. (2) UTI (urinary tract infection) Comment: - Garcia catheter related, present on admission. - Urine culture growing Gram negative bacilli >100k colonies. - Renal US was unremarkable. - Continue Ceftriaxone #3. - ID consult requested. (3) Paroxysmal a-fib Comment: - Secondary to infection. - Off Diltiazem drip; continue PO amiodarone and metoprolol. - Continue Apixaban. (4) Multiple sclerosis Comment: - Continue supportive care. (5) Trigeminal neuralgia of right side of face Comment: - Continue oxcarbazepine. (6) Dysphagia Comment: - Swallow evaluation. (7) DVT prophylaxis Comment: - Apixaban. (8) DNR (do not resuscitate) Status and Disposition: Inpatient.
[2018-02-07] MEDS: tiZANidine TAB* 2 MG PO PRN (18:10)
[2018-02-07] MEDS: tiZANidine TAB* 2 MG PO SCH (23:32)
[2018-02-08] MEDS: tiZANidine TAB* 2 MG PO PRN ×2 (04:35→14:37)
[2018-02-08 06:59] LABS: EGFR Non-African American 91.9 (>60)
[2018-02-08] MEDS: Acetaminophen TAB* 325 MG PO SCH ×2 (09:16→20:58)
[2018-02-08] MEDS: Cholecalciferol TAB* 1000 UNITS PO SCH (09:20)
[2018-02-08] MEDS: Metoprolol Succinate XL TAB* 25 MG PO SCH ×2 (09:21→21:03)
[2018-02-08] MEDS: Apixaban* 5 MG TAB PO SCH ×2 (09:22→20:58)
[2018-02-08] MEDS: OXcarbazepine TAB(*) 300 MG PO SCH ×2 (09:22→20:57)
[2018-02-08] MEDS: Senna TAB PO SCH ×2 (09:23→20:58)
[2018-02-08] MEDS: Famotidine TAB* 20 MG PO SCH (09:24)
[2018-02-08] MEDS: Amiodarone TAB* 200 MG PO SCH (09:25)
[2018-02-08] MEDS: Docusate CAP* 100 MG PO SCH ×2 (09:26→20:58)
[2018-02-08] MEDS: Meropenem 1 GM PREMIX(*) 1 GM/50 ML BAG IV SCH ×2 (13:35→20:56)
[2018-02-08] MEDS: Metoprolol Tartrate IV* 1 MG/ML 5 ML VIAL IV PRN (14:37)
--- NOTE | 2018-02-08 15:36 | PN ---
Subjective Date of Service: 02/08/18 Interval History: HOSPITALIST PROGRESS NOTE Patient seen and examined at bedside. Care reviewed and d/w Juan Miguel Walker RN. She is more awake today. Still has confusion, but able to ask appropriate questions. Family History: Unchanged from Admission Social History: Unchanged from Admission Past Medical History: Unchanged from Admission Objective Active Medications: Acetaminophen (Tylenol Tab*) 975 mg PO BID [facility] Last Admin: 02/08/18 09:16 Dose: 975 mg Acetaminophen (Tylenol Tab*) 975 mg PO DAILY PRN PRN Reason: PAIN Amiodarone HCl (Cordarone Tab*) 100 mg PO DAILY [facility] Last Admin: 02/08/18 09:25 Dose: 100 mg Apixaban (Eliquis*) 5 mg PO BID [facility] Last Admin: 02/08/18 09:22 Dose: 5 mg Cholecalciferol (Vitamin D Tab*) 2,000 units PO DAILY [facility] Last Admin: 02/08/18 09:20 Dose: 2,000 units Docusate Sodium (Colace Cap*) 100 mg PO BID [facility] Last Admin: 02/08/18 09:26 Dose: 100 mg Famotidine (Pepcid Tab*) 20 mg PO DAILY [facility]; Protocol Last Admin: 02/08/18 09:24 Dose: 20 mg Meropenem (Merrem 1 Gm Premix(*)) 1 gm in 50 mls @ 100 mls/hr IV Q8H [facility] Last Admin: 02/08/18 13:35 Dose: 100 mls/hr Metoprolol Succinate (Toprol Xl Tab*) 25 mg PO BID [facility] Last Admin: 02/08/18 09:21 Dose: 25 mg Metoprolol Tartrate (Lopressor Iv*) 5 mg IV Q6H PRN PRN Reason: HR>120 Last Admin: 02/08/18 14:37 Dose: 5 mg Ondansetron HCl (Zofran Inj*) 4 mg IV Q6H PRN PRN Reason: NAUSEA Oxcarbazepine (Trileptal Tab(*)) 300 mg PO BID [facility] Last Admin: 02/08/18 09:22 Dose: 300 mg Senna (Senokot Tab*) 2 tab PO BID [facility] Last Admin: 02/08/18 09:23 Dose: 2 tab Simethicone (Mylicon Tab*) 80 mg PO Q6H PRN PRN Reason: INDIGESTION Last Admin: 02/07/18 10:42 Dose: 80 mg Tizanidine HCl (Zanaflex Tab*) 2 mg PO BEDTIME [facility] Last Admin: 02/07/18 23:32 Dose: Not Given Tizanidine HCl (Zanaflex Tab*) 2 mg PO DAILY PRN PRN Reason: PAIN Last Admin: 02/08/18 14:37 Dose: 2 mg Vital Signs - 8 hr 02/08/18 02/08/18 02/08/18 08:00 09:35 11:31 Temperature 98.4 F 98.3 F Pulse Rate 96 66 Respiratory 18 20 20 Rate Blood Pressure 124/58 118/49 (mmHg) O2 Sat by Pulse 95 95 Oximetry Oxygen Devices in Use Now: None Appearance: Elderly lady lying in bed in NAD. Eyes: No Scleral Icterus Ears/Nose/Mouth/Throat: Mucous Membranes Moist Neck: Trachea Midline Respiratory: Symmetrical Chest Expansion and Respiratory Effort, Clear to Auscultation Cardiovascular: RRR - Normal S1 and S2 Abdominal: NL Sounds; No Tenderness; No Distention Extremities: - - Trace bilateral LE edema, moderate RUE edema Neurological: - - AAOx2 (self and place) Result Diagrams: 02/06/18 05:29 02/08/18 05:58 Microbiology and Other Data: Microbiology 02/06/18 12:30 Urine Culture - Preliminary Urine Gram Negative Bacilli 02/05/18 20:51 Aerobic Blood Culture - Preliminary Blood Venous No Growth Day 1 Anaerobic Blood Culture - Preliminary No Growth Day 1 02/05/18 20:51 Aerobic Blood Culture - Preliminary Blood Venous No Growth Day 1 Anaerobic Blood Culture - Preliminary No Growth Day 1 02/06/18 02:10 Nasal Screen MRSA (PCR) - Final Nasal Mrsa Not Detected Assess/Plan/Problems-Billing Assessment: Mrs Anna is a 78yo F with PMH of MS, indwelling Garcia due to urinary retention, HLD, PAF, trigeminal neuralgia, recurrent UTIs, who presented to ED with increased confusion and fever, found to have sepsis secondary to UTI and Afib RVR. - Patient Problems (1) Sepsis Comment: - Presentation compatible with sepsis with fever, and tachycardia. - Present on admission. - Source is UTI. (2) UTI (urinary tract infection) Comment: - Garcia catheter related, present on admission. - Urine culture growing ESBL E. coli - will d/c Ceftriaxone and start Meropenem. - Renal US was unremarkable. - Awaiting ID consult. (3) Paroxysmal a-fib Comment: - Secondary to infection. - She's flipping in and out of Afib. - Off Diltiazem drip; continue PO amiodarone and metoprolol. - Continue Apixaban. (4) Multiple sclerosis Comment: - Continue supportive care. (5) Trigeminal neuralgia of right side of face Comment: - Continue oxcarbazepine. (6) Dysphagia Comment: - Awaiting Swallow evaluation. (7) DVT prophylaxis Comment: - Apixaban. (8) DNR (do not resuscitate) Status and Disposition: Inpatient. D/w son and sister at bedside - due to her poor PO fluid intake, she may be a candidate for a PEG soon. He's not sure which way she would want to proceed. We'll continue conversations.
[2018-02-08] MEDS: KCL 10 MEQ/50 ML IVPREMIX* 10 MEQ/50 ML BAG IV SCH ×3 (17:10→21:44)
--- NOTE | 2018-02-08 19:25 | CONS ---
CONSULTATION REPORT: DATE OF CONSULTATION: 02/08/18 REQUESTING PHYSICIAN: Dr. Choudhary. CONSULTING SERVICE: Infectious Disease. REASON FOR CONSULTATION: Urinary tract infection. IMPRESSION: 1. Cystitis in the setting of a chronic Garcia catheter. 2. Encephalopathy, septic due to #1, improving. 3. E. Coli ESBL infection, sensitive to tetracycline. 4. Allergy to AUGMENTIN, they are not sure of the reaction. 5. Multiple sclerosis with urinary retention. RECOMMENDATIONS: 1. Doxycycline 100 mg by mouth twice a day, could be crushed up in applesauce if needed to give to her. Plan on 10 more days of antibiotics. It is not clear to me that all of her positive cultures are infection. 2. She had a renal ultrasound we will do an ultrasound of the bladder and ureters as well. HISTORY OF PRESENT ILLNESS: This is a 78-year-old woman with progressive MS, admitted with encephalopathy and inability to replace the Garcia cath where she lives at [place]. It was taken out, could not be put back in. She came to the hospital, she was febrile. Urinalysis showed blood, nitrites, leukocyte esterase. Urine culture growing E. 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 The blood cultures are negative. She was on ceftriaxone with some improvement of mental status along with IV hydration, which I think would help the most. She was switched to meropenem today. She denies any pain. She cannot provide much of the history, so it was obtained instead from discussion with Dr. Choudhary, the patient's family and review of the medical record. Her son says she always has urinary tract infection every time the culture is checked positive. She just finished a couple of weeks of antibiotics, which sometimes help her symptoms, sometimes do not. Her symptoms are usually change in mental status, which often improve before the time the antibiotics are started. PAST MEDICAL HISTORY: 1. Progressive multiple sclerosis. 2. History of stroke. 3. Urinary retention with Garcia catheter. 4. History of urinary tract infection. 5. Hyperlipidemia. 6. Atrial fibrillation. 7. Trigeminal neuralgia. 8. Anxiety. 9. Vitamin D deficiency. 10. Vitamin B12 deficiency. 11. Gastroesophageal reflux disease. MEDICATIONS: 1. Tylenol. 2. Amiodarone. 3. Apixaban. 4. Cholecalciferol. 5. Docusate. 6. Famotidine. 7. Meropenem 1 g IV every 8 hours. 8. Metoprolol. 9. Oxcarbazepine. 10. Simethicone. 11. Tizanidine. ALLERGIES: DIGOXIN, AUGMENTIN, VALPROIC ACID, PHENYTOIN, XARELTO. FAMILY HISTORY: Father with possible MD. The patient's mom at 93. SOCIAL HISTORY: She lives at [facility]. She is a nonsmoker. REVIEW OF SYSTEMS: A 14-point review was negative, except as noted above in the history of present illness. PHYSICAL EXAM: Vital Signs: Temperature is 37, heart rate 90, respiratory rate 20, blood pressure 124/58, oxygen saturation 95% on room air. In general, she is awake and not in distress. Neurologic: She is alert. She answers some questions appropriately. She is oriented x2. She follows some commands. HEENT: There is no conjunctival hemorrhage. Oropharynx without lesions. Neck is supple without mass. Heart is regular rate and rhythm without murmurs, rubs, or gallops. Lungs: Clear to auscultation bilaterally. Abdomen is soft, nontender, nondistended. There are bowel sounds present. Skin: There is no rash or splinter hemorrhage. Genitourinary: There is a Garcia catheter present. LABORATORY DATA: Creatinine 0.6. White blood cell count 11, hemoglobin 11.8, platelets 165,000. Please see impressions and recommendations outlined above, which I have discussed with Dr. Choudhary. Thanks for asking me to see Ms. Anna in consultation. [id number]/[facility] #: [id number] MTDD
[2018-02-08] MEDS: tiZANidine TAB* 2 MG PO SCH (20:57)
[2018-02-09] MEDS: Meropenem 1 GM PREMIX(*) 1 GM/50 ML BAG IV SCH ×3 (03:45→20:31)
[2018-02-09 06:40] LABS: EGFR Non-African American 85.6 (>60)
[2018-02-09] MEDS: Docusate CAP* 100 MG PO SCH ×2 (07:48→20:30)
[2018-02-09] MEDS: tiZANidine TAB* 2 MG PO PRN ×2 (07:48→15:04)
[2018-02-09] MEDS: Acetaminophen TAB* 325 MG PO SCH ×3 (07:49→20:29)
[2018-02-09] MEDS: Senna TAB PO SCH ×2 (07:49→20:30)
[2018-02-09] MEDS: Apixaban* 5 MG TAB PO SCH ×2 (07:50→20:31)
[2018-02-09] MEDS: Metoprolol Succinate XL TAB* 25 MG PO SCH ×2 (07:50→20:32)
[2018-02-09] MEDS: Cholecalciferol TAB* 1000 UNITS PO SCH (07:50)
[2018-02-09] MEDS: Famotidine TAB* 20 MG PO SCH (07:51)
[2018-02-09] MEDS: OXcarbazepine TAB(*) 300 MG PO SCH ×2 (07:51→20:32)
[2018-02-09] MEDS: Amiodarone TAB* 200 MG PO SCH (07:52)
--- NOTE | 2018-02-09 17:09 | PN ---
Subjective Date of Service: 02/09/18 Interval History: HOSPITALIST PROGRESS NOTE Patient seen and examined at bedside. Care reviewed and d/w Charly House RN. She is more confused today, repeatedly asking for help, but unable to pinpoint what she needs. Unable to participate with Speech pathology today. Ate 20% of dinner last night, 0 breakfast and 20% lunch today. Family History: Unchanged from Admission Social History: Unchanged from Admission Past Medical History: Unchanged from Admission Objective Active Medications: Acetaminophen (Tylenol Tab*) 975 mg PO BID [facility] Last Admin: 02/09/18 15:03 Dose: 975 mg Acetaminophen (Tylenol Tab*) 975 mg PO DAILY PRN PRN Reason: PAIN Last Admin: 02/08/18 17:17 Dose: 975 mg Amiodarone HCl (Cordarone Tab*) 100 mg PO DAILY [facility] Last Admin: 02/09/18 07:52 Dose: 100 mg Apixaban (Eliquis*) 5 mg PO BID [facility] Last Admin: 02/09/18 07:50 Dose: 5 mg Cholecalciferol (Vitamin D Tab*) 2,000 units PO DAILY [facility] Last Admin: 02/09/18 07:50 Dose: 2,000 units Docusate Sodium (Colace Cap*) 100 mg PO BID [facility] Last Admin: 02/09/18 07:48 Dose: 100 mg Famotidine (Pepcid Tab*) 20 mg PO DAILY [facility]; Protocol Last Admin: 02/09/18 07:51 Dose: 20 mg Meropenem (Merrem 1 Gm Premix(*)) 1 gm in 50 mls @ 100 mls/hr IV Q8H [facility] Last Admin: 02/09/18 14:59 Dose: 100 mls/hr Lactated Ringer's (Lactated Ringers 1000 Ml Bag*) 1,000 mls @ 125 mls/hr IV PER RATE [facility] Last Admin: 02/09/18 09:43 Dose: 125 mls/hr Metoprolol Succinate (Toprol Xl Tab*) 25 mg PO BID [facility] Last Admin: 02/09/18 07:50 Dose: 25 mg Metoprolol Tartrate (Lopressor Iv*) 5 mg IV Q6H PRN PRN Reason: HR>120 Last Admin: 02/08/18 14:37 Dose: 5 mg Ondansetron HCl (Zofran Inj*) 4 mg IV Q6H PRN PRN Reason: NAUSEA Oxcarbazepine (Trileptal Tab(*)) 300 mg PO BID [facility] Last Admin: 02/09/18 07:51 Dose: 300 mg Senna (Senokot Tab*) 2 tab PO BID [facility] Last Admin: 02/09/18 07:49 Dose: 2 tab Simethicone (Mylicon Tab*) 80 mg PO Q6H PRN PRN Reason: INDIGESTION Last Admin: 02/07/18 10:42 Dose: 80 mg Tizanidine HCl (Zanaflex Tab*) 2 mg PO BEDTIME [facility] Last Admin: 02/08/18 20:57 Dose: 2 mg Tizanidine HCl (Zanaflex Tab*) 2 mg PO DAILY PRN PRN Reason: PAIN Last Admin: 02/09/18 15:04 Dose: 2 mg Selected Entries 02/09/18 03:32 Temperature 97.6 F Pulse Rate 64 Respiratory 16 Rate Blood Pressure 127/62 (mmHg) O2 Sat by Pulse 99 Oximetry Oxygen Devices in Use Now: None Appearance: Elderly lady lying in bed in NAD. Eyes: No Scleral Icterus Ears/Nose/Mouth/Throat: Mucous Membranes Moist Neck: Trachea Midline Respiratory: Symmetrical Chest Expansion and Respiratory Effort, Clear to Auscultation Cardiovascular: RRR - Normal S1 and S2 Abdominal: NL Sounds; No Tenderness; No Distention Extremities: - - Bilateral LE and RUE edema Neurological: - - AAOx1 (self only) Result Diagrams: 02/06/18 05:29 02/09/18 06:10 Microbiology and Other Data: Microbiology 02/06/18 12:30 Urine Urine Culture - Final Esbl Escherichia Coli Assess/Plan/Problems-Billing Assessment: Mrs Anna is a 78yo F with PMH of MS, indwelling Garcia due to urinary retention, HLD, PAF, trigeminal neuralgia, recurrent UTIs, who presented to ED with increased confusion and fever, found to have sepsis secondary to UTI and Afib RVR. - Patient Problems (1) Sepsis Comment: - Presentation compatible with sepsis with fever, and tachycardia. - Present on admission. - Source is UTI. (2) UTI (urinary tract infection) Comment: - Garcia catheter related, present on admission. - Urine culture growing ESBL E. coli - continue Meropenem. - Renal and bladder US unremarkable. - ID consult appreciated - she is not taking enough PO right now, so will continue Meropenem and discuss it further with ID. (3) Encephalopathy Comment: - Multifactorial in the setting of sepsis, dehydration, multiple sclerosis, hospital stay. - She is now delirious. - Will continue supportive care. (4) Hypernatremia Comment: - Secondary to poor oral intake - will resume IVF for now. - Lengthy conversation with son (Eleazar) about plan going forward. He understands IV fluids are not a jail solution, but hopes she'll improve enough to eat and drink more. She has lost >10lbs since her last admission and I'm concerned with her nutritional status. On the other hand, this is her first admission in more than 1 year. We talked about placing a NGT for nutrition and hydration until the family decides which way to proceed, but son wants to try having a family member present for every meal in hopes of increasing her PO intake. We also talked about PEG placement and he's not sure his mom would want one. He had a brother with muscle distrophy who required PEG/trach, so he's aware of what it entails. Plan for now is to continue IVF overnight, recheck sodium in AM. If normal, would discontinue IVF and see if PO intake encouraged by family is enough. If not, will have to talk about NGT/PEG again. (5) Paroxysmal a-fib Comment: - Secondary to infection. - She's flipping in and out of Afib, but rate is controlled with PO amiodarone and metoprolol. - Continue Apixaban. (6) Transaminitis Comment: - Likely secondary to sepsis and poor perfusion state secondary to Afib RVR - resolved. (7) Multiple sclerosis Comment: - Continue supportive care. (8) Trigeminal neuralgia of right side of face Comment: - Continue oxcarbazepine. (9) Dysphagia Comment: - Awaiting Swallow evaluation. (10) DVT prophylaxis Comment: - Apixaban. (11) DNR (do not resuscitate) Status and Disposition: Inpatient. Son called and updated.
[2018-02-09] MEDS: tiZANidine TAB* 2 MG PO SCH (20:32)
[2018-02-10] MEDS: Metoprolol Tartrate IV* 1 MG/ML 5 ML VIAL IV PRN ×4 (01:08→18:25)
[2018-02-10] MEDS: Meropenem 1 GM PREMIX(*) 1 GM/50 ML BAG IV SCH (03:54)
[2018-02-10] MEDS ORDERED: Potassium Chlor TAB* 20 MEQ TAB.ER PO ONE (06:06)
[2018-02-10] MEDS: Amiodarone TAB* 200 MG PO SCH (08:17)
[2018-02-10] MEDS: Apixaban* 5 MG TAB PO SCH ×2 (08:18→20:31)
[2018-02-10] MEDS: Metoprolol Succinate XL TAB* 25 MG PO SCH ×2 (08:18→20:31)
[2018-02-10] MEDS: OXcarbazepine TAB(*) 300 MG PO SCH ×2 (08:18→20:32)
[2018-02-10] MEDS: Cholecalciferol TAB* 1000 UNITS PO SCH (08:23)
[2018-02-10] MEDS: Docusate CAP* 100 MG PO SCH ×2 (08:23→20:31)
[2018-02-10] MEDS: tiZANidine TAB* 2 MG PO PRN (08:23)
[2018-02-10] MEDS: Acetaminophen TAB* 325 MG PO SCH ×2 (08:23→20:31)
[2018-02-10] MEDS: Senna TAB PO SCH ×2 (08:23→20:32)
[2018-02-10] MEDS: Famotidine TAB* 20 MG PO SCH (08:23)
[2018-02-10 08:32] LABS: ABS Basophils 0 10^3/ul (0-0.2); ABS Eosinophils 0.3 10^3/ul (0-0.6); ABS Lymphocytes 1.4 10^3/ul (1.0-4.8); ABS Monocytes 0.6 10^3/ul (0-0.8); ABS Nucleated RBC 0 10^3/ul; Eosinophil % 2.8 %; Hematocrit 32 % (35-47); Hemoglobin 10.8 g/dl (12.0-16.0); Mean Corpuscular HGB Conc 34 g/dl (31-36); Mean Corpuscular Hemoglobin 31 pg (27-31); Mean Corpuscular Volume 92 fL (80-97); Mean Platelet Volume 7.4 fL (7.4-10.4); Nucleated Red Blood Cells % 0; Platelet Count 277 10^3/ul (150-450); Red Blood Count 3.46 10^6/ul (4.00-5.40); Red Cell Distribution Width 14 % (10.5-15); White Blood Count 9.3 10^3/ul (3.5-10.8)
[2018-02-10 08:45] LABS: EGFR Non-African American 117.2 (>60)
[2018-02-10] MEDS: DOXYcycline CAP(*) 100 MG PO SCH ×2 (10:08→20:31)
[2018-02-10] MEDS ORDERED: Magnesium CITRATE* 300 ML BTL PO ONE (11:42)
[2018-02-10] MEDS: Magnesium Oxide TAB* 400 MG PO SCH (12:25)
--- NOTE | 2018-02-10 13:06 | PN ---
Subjective Date of Service: 02/10/18 Interval History: Pt is back to her neurological baseline: pleasant , conversational, disoriented , paraplegia apart for left arm. No new complaints, apart for constipation Family History: Unchanged from Admission Social History: Unchanged from Admission Past Medical History: Unchanged from Admission Objective Active Medications: Acetaminophen (Tylenol Tab*) 975 mg PO BID [facility] Last Admin: 02/10/18 08:23 Dose: 975 mg Acetaminophen (Tylenol Tab*) 975 mg PO DAILY PRN PRN Reason: PAIN Last Admin: 02/08/18 17:17 Dose: 975 mg Amiodarone HCl (Cordarone Tab*) 100 mg PO DAILY [facility] Last Admin: 02/10/18 08:17 Dose: 100 mg Apixaban (Eliquis*) 5 mg PO BID [facility] Last Admin: 02/10/18 08:18 Dose: 5 mg Cholecalciferol (Vitamin D Tab*) 2,000 units PO DAILY [facility] Last Admin: 02/10/18 08:23 Dose: 2,000 units Docusate Sodium (Colace Cap*) 100 mg PO BID [facility] Last Admin: 02/10/18 08:23 Dose: 100 mg Doxycycline Hyclate (Vibramycin Cap(*)) 100 mg PO BID [facility] Last Admin: 02/10/18 10:08 Dose: 100 mg Famotidine (Pepcid Tab*) 20 mg PO DAILY [facility]; Protocol Last Admin: 02/10/18 08:23 Dose: 20 mg Lactated Ringer's (Lactated Ringers 1000 Ml Bag*) 1,000 mls @ 75 mls/hr IV PER RATE [facility] Last Admin: 02/10/18 12:25 Dose: 75 mls/hr Magnesium Oxide (Magox 400 Tab*) 800 mg PO DAILY [facility] Last Admin: 02/10/18 12:25 Dose: 800 mg Metoprolol Succinate (Toprol Xl Tab*) 25 mg PO BID [facility] Last Admin: 02/10/18 08:18 Dose: 25 mg Metoprolol Tartrate (Lopressor Iv*) 5 mg IV Q6H PRN PRN Reason: HR>120 Last Admin: 02/10/18 12:25 Dose: 5 mg Ondansetron HCl (Zofran Inj*) 4 mg IV Q6H PRN PRN Reason: NAUSEA Oxcarbazepine (Trileptal Tab(*)) 300 mg PO BID [facility] Last Admin: 02/10/18 08:18 Dose: 300 mg Senna (Senokot Tab*) 2 tab PO BID [facility] Last Admin: 02/10/18 08:23 Dose: 2 tab Simethicone (Mylicon Tab*) 80 mg PO Q6H PRN PRN Reason: INDIGESTION Last Admin: 02/07/18 10:42 Dose: 80 mg Tizanidine HCl (Zanaflex Tab*) 2 mg PO BEDTIME [facility] Last Admin: 02/09/18 20:32 Dose: 2 mg Tizanidine HCl (Zanaflex Tab*) 2 mg PO DAILY PRN PRN Reason: PAIN Last Admin: 02/10/18 08:23 Dose: 2 mg Vital Signs - 8 hr 02/10/18 02/10/18 02/10/18 07:26 11:05 11:24 Temperature 97.9 F 97.5 F Pulse Rate 125 126 Respiratory 18 18 Rate Blood Pressure 124/84 109/64 (mmHg) O2 Sat by Pulse 97 98 Oximetry Oxygen Devices in Use Now: None Appearance: 78 yo f in [place], pleasant, conversational, oriented to self only Eyes: No Scleral Icterus, PERRLA Ears/Nose/Mouth/Throat: NL Teeth, Lips, Gums, Mucous Membranes Moist Neck: NL Appearance and Movements; NL JVP, Trachea Midline Respiratory: Symmetrical Chest Expansion and Respiratory Effort, Clear to Auscultation Cardiovascular: NL Sounds; No Murmurs; No JVD, - - irregular Abdominal: NL Sounds; No Tenderness; No Distention, No Hepatosplenomegaly Lymphatic: No Cervical Adenopathy Extremities: No Clubbing, Cyanosis, - Skin: No Nodules or Sclerosis Neurological: - - contracted R arm. minmal movement in b/l L'es toes, unable to move legs against gravity. L arm 4+/5 Result Diagrams: 02/10/18 07:58 02/10/18 07:58 Microbiology and Other Data: Microbiology 02/06/18 12:30 Urine Urine Culture - Final Esbl Escherichia Coli Assess/Plan/Problems-Billing Assessment: Mrs Anna is a 78yo F with PMH of MS, indwelling Garcia due to urinary retention, HLD, PAF, trigeminal neuralgia, recurrent UTIs, who presented to ED with increased confusion and fever, found to have sepsis secondary to UTI and Afib RVR. - Patient Problems (1) UTI (urinary tract infection) Comment: - Garcia catheter related, present on admission. - Urine culture growing ESBL E. coli - Meropenem switched to Doxy by ID - Renal and bladder US unremarkable. (2) Sepsis Comment: - Presentation compatible with sepsis with fever, and tachycardia. - Present on admission. - Source is UTI.Cx positive fo ESBL E.coli. appreciate ID's recommanedations: on Doxy (3) Encephalopathy Comment: - Multifactorial in the setting of sepsis, dehydration, multiple sclerosis, hospital stay. Resolved. PO intake is increasing (4) Dysphagia Comment: - Awaiting Swallow evaluation. (5) Hypernatremia Comment: - Secondary to poor oral intake - improving, cont IVF . (6) Multiple sclerosis Comment: - Continue supportive care. (7) Paroxysmal a-fib Comment: - Secondary to infection. - She's flipping in and out of Afib, but rate is controlled with PO amiodarone and metoprolol. - Continue Apixaban. (8) Transaminitis Comment: - Likely secondary to sepsis and poor perfusion state secondary to Afib RVR - resolved. (9) Trigeminal neuralgia of right side of face Comment: - Continue oxcarbazepine. (10) DVT prophylaxis Comment: - Apixaban. Status and Disposition: Inpatient.
[2018-02-10] MEDS ORDERED: Diltiazem IV* 5 MG/ML 5 ML VIAL (for loading dose/IV Push) (25 MG) IV SLOW PU ONE (13:56)
[2018-02-10] MEDS ORDERED: Magnesium Sulfate 1 GM IV* 1 GM/100 ML BAG IV ONE (14:00)
[2018-02-10] MEDS: tiZANidine TAB* 2 MG PO SCH (20:31)
[2018-02-11 07:30] LABS: EGFR Non-African American 109.8 (>60)
[2018-02-11 07:42] VITALS: BP 136/66
[2018-02-11 08:15] LABS: Monocytes % 6 %
[2018-02-11 08:19] LABS: ABS Neutrophils 8.1 10^3/ul (1.5-7.7)
[2018-02-11 08:20] LABS: Hematocrit 32 % (35-47); Hemoglobin 10.3 g/dl (12.0-16.0); Mean Corpuscular HGB Conc 32 g/dl (31-36); Mean Corpuscular Hemoglobin 30 pg (27-31); Mean Corpuscular Volume 93 fL (80-97); Mean Platelet Volume 8.3 fL (7.4-10.4); Platelet Count 271 10^3/ul (150-450); Red Blood Count 3.42 10^6/ul (4.00-5.40); Red Cell Distribution Width 14 % (10.5-15)
[2018-02-11 08:21] LABS: White Blood Count 11.1 10^3/ul (3.5-10.8)
[2018-02-11] MEDS: tiZANidine TAB* 2 MG PO PRN (08:43)
[2018-02-11] MEDS: DOXYcycline CAP(*) 100 MG PO SCH (08:43)
[2018-02-11] MEDS: Acetaminophen TAB* 325 MG PO SCH (08:43)
[2018-02-11] MEDS: Senna TAB PO SCH (08:44)
[2018-02-11] MEDS: Docusate CAP* 100 MG PO SCH (08:44)
[2018-02-11] MEDS: Magnesium Oxide TAB* 400 MG PO SCH (08:44)
[2018-02-11] MEDS: Famotidine TAB* 20 MG PO SCH (08:44)
[2018-02-11] MEDS: Cholecalciferol TAB* 1000 UNITS PO SCH (08:44)
[2018-02-11] MEDS: Apixaban* 5 MG TAB PO SCH (08:44)
[2018-02-11] MEDS: Metoprolol Succinate XL TAB* 25 MG PO SCH (08:44)
[2018-02-11] MEDS: OXcarbazepine TAB(*) 300 MG PO SCH (08:44)
[2018-02-11] MEDS: Amiodarone TAB* 200 MG PO SCH (08:44)
--- NOTE | 2018-02-11 08:56 | PN ---
Progress Note - Progress Note Date of Service: 02/11/18 SOAP: Subjective: CC: cath assoc UTI HPI: 78 year old woman with chronic hsu catheter and UTI with sepsis/ encephalopathy. Improved. No fever, rash, diarrhea, appetite is good. Objective: Vital Signs Temp 36.4 C 02/11/18 07:36 Pulse 61 02/11/18 07:36 Resp 16 02/11/18 07:36 BP 136/66 02/11/18 07:36 Pulse Ox 98 02/11/18 07:36 Intake & Output 02/10/18 02/11/18 02/11/18 18:59 06:59 18:59 Intake Total 1458 1115 Output Total 700 875 Balance 758 240 Intake: IV Fluids 900 1115 LR 900 1115 IVPB 108 mag sulfate 108 Oral 450 0 Output: Urine 0 Hsu 700 875 Liquid Stool 0 Other: # Bowel Movements 0 Estimated Stool Amount Medium Medium Gen:awake, no distress HEENT: no thrush Heart:RRR no murmur Lungs:CTA BL Abd: +BS NTND soft Skin: no rash Laboratory Results - last 24 hr 02/11/18 02/11/18 06:38 06:38 WBC 11.1 H RBC 3.42 L Hgb 10.3 L Hct 32 L MCV 93 MCH 30 MCHC 32 RDW 14 Plt Count 271 MPV 8.3 Neutrophils % 73 Lymphocytes % 18 Monocytes % 6 Eosinophils % 3 Abs Neuts (Manual) 8.1 H Abs Lymphs (Manual) 1.99 Abs Monocytes (Manual) 0.67 Absolute Eos (Manual) 0.33 Normal RBC Morphology Normal Sodium 146 H Potassium 4.2 Chloride 114 H Carbon Dioxide 25 Anion Gap 7 BUN 16 Creatinine 0.54 Est GFR ( Amer) 132.8 Est GFR (Non-Af Amer) 109.8 BUN/Creatinine Ratio 29.6 H Glucose 89 Calcium 8.4 L Magnesium 2.0 Renal/bladder/ureter US negative Assessment: 1. ESBL/Ecoli CAUTI, community acquired 2. hx CVA w hemiparesis and urinary retention 3. septic encephalopathy, reseolved Plan: 1. doxycycline 100 mg po bid for 7 more days 25 minute floor time >50 % face to face in counseling with patient and aide regarding antibiotic plans
--- NOTE | 2018-02-11 12:15 | DS ---
CC: Primary Care Provider; Dr. Blue DISCHARGE SUMMARY: DATE OF ADMISSION: DATE OF DISCHARGE: ADDENDUM: HOSPITALIZATION COURSE: Mrs. Anna is a 78-year-old female with medical history of secondary pr ogressive multiple sclerosis and history of CVA and indwelling Garcia catheter who presented to the [facility] with altered mental status. She was treated outpatient for UTI. She was noted to be in atrial fibrillation with rapid ventricular response and sepsis due to UTI. Her cultures grew ESBL E. coli and Dr. Blue was consulted in the case. The patient was treated initially with ceftriaxone. Onc e the cultures came back positive for ESBL, she was switched to meropenem. Eventually, she was switc hed on p.o. medications, was tolerating p.o. diet to doxycycline. Dr[facility] doxycycline at 100 mg b.i.d. for a total of 7 days. The patient's hospitalization course was complicated by encephalopathy due to sepsis. The patient wa s initially combative. Later on, she was lethargic with very poor p.o. intake. She developed hypona tremia due to dehydration, which was corrected and almost resolved by the time of discharge. Initial ly, due to her atrial fibrillation with rapid ventricular response, she was on Cardizem drip. Later o n, it was discontinued. The patient continued to be going back and forth in between atrial fibrillat ion and sinus rhythm on the day of discharge when she had eventually converted to sinus rhythm and st ayed in it. The patient's Toprol XL dose was increased over the course of her hospital stay to twice a day, which is going to be continued at discharge. The patient had transient transaminitis noted that resolved almost entirely by the time of discharge and likely developed due to sepsis. At discharge, the patient is going to be going back to [facility] for further treatm ent. PHYSICAL EXAM: At the time of discharge, blood pressure of 136/66, heart rate of 61 and regular, res piratory rate 16, oxygen saturation 98% on room air, temperature 97.5. General: The patient is a ve ry pleasant 78-year-old female who is in no acute distress. The patient is alert and oriented to shaina f only. She recognized family members. She would not be able to give me the location or time. HEEN T: Head atraumatic, normocephalic. Eyes: Pupils equal, round, and reactive to light and accommodatio n. Oropharynx clear. Mucosa moist. Neck: Supple. No JVD. No bruits bilaterally. Cardiovascular : Regular rate and rhythm. No murmur. Respiratory: Clear to auscultation bilaterally. Abdomen: So ft, nontender. Bowel sounds present in all 4 quadrants. Extremities: There is no edema. Pulse +2 bilaterally. No clubbing or cyanosis. Neuro Evaluation: The patient has contracted right arm. Min imal movement bilateral lower extremities mostly in the toes. The patient is unable to raise her leg s against gravity. The left arm is at 4+/5 in motor strength. At discharge, the patient was recommended to follow up with the physician at [facility] in approx imately 1 to 3 days. Please note that this is a short summary of the patient's hospitalization. Please refer to further edical records for details. TIME SPENT: Approximately 35 minutes were spent in preparation of the patient's discharge. [id number]/[facility] #: [id number]
--- NOTE | 2018-02-11 12:23 | DS ---
CC: Osmany Suh NP; Dr. Mack * DISCHARGE SUMMARY: DATE OF ADMISSION: 02/05/18 DATE OF DISCHARGE: 02/11/18 PRIMARY CARE PROVIDER: Osmany Suh NP. NEUROLOGIST: Dr. Mack. DISCHARGE DIAGNOSES: 1. Sepsis due to ESBL E. coli urinary tract infection in a patient with indwelling Garcia. 2. Encephalopathy due to sepsis, resolved. 3. Transaminitis due to sepsis resolved. 4. Hyponatremia due to poor oral intake, resolving. 5. Paroxysmal atrial fibrillation with episodes of atrial fibrillation with rapid ventricular response, resolved. By the time of discharge, the patient was back to sinus rhythm. SECONDARY DIAGNOSES: 1. History of secondary progressive multiple sclerosis. 2. History of cerebrovascular accident. 3. History of neurogenic bladder with indwelling Garcia and recurrent urinary tract infections. 4. Hyperlipidemia. 5. Paroxysmal atrial fibrillation. 6. Trigeminal neuralgia. 7. Anxiety. 8. History of sacral pressure ulcers. 9. Vitamin D deficiency. 10. Vitamin B12 deficiency. 11. Gastroesophageal reflux disease. MEDICATIONS AT DISCHARGE: Include: 1. Metoprolol succinate was changed from 25 mg once a day to twice a day. 3. The patient was placed on doxycycline at 100 mg b.i.d. for a total of 7 days , then stop. The remaining medications are unchanged and include: 1. Acetaminophen 1000 mg p.o. daily p.r.n. 2. Amiodarone 100 mg daily. 3. Vitamin B12 at 1000 mcg IM monthly. 4. Copaxone 20 mg subcutaneously daily. 5. Trileptal 300 mg b.i.d. 6. Zantac 150 mg daily. 7. Colace 200 mg b.i.d. 8. Zanaflex 2 mg daily and 2 mg at bedtime. 9. Eliquis 5 mg b.i.d. LABORATORY DATA AND STUDIES PERFORMED DURING THE HOSPITAL STAY: On 02/11/18, white blood cell count of 11.1, hemoglobin of 10.3, hematocrit of 32, and platelets of 171. Sodium was 146, potassium 4.2, chloride 114, carbon dioxide 25, BUN 16, creatinine 0.54. Most recent liver function tests obtained on 02/09 showed bilirubin of 0.3, AST of 48, alkaline phosphatase of 205. Cultures are positive for ESBL E. coli in the urine and blood cultures were negative. Bladder ultrasound obtained on 02/08/18, impression: "Minimal urine in the bladder at the time of the study despite clamping of the Garcia catheter. Volume measured at 10 mL. Bilateral ureteral jets are documented." CONSULTATIONS DURING THE HOSPITAL STAY: Included Dr. Blue from Infectious Diseases. HOSPITALIZATION COURSE: Mrs. Anna is a 78-year-old female with medical history of secondary progressive multiple sclerosis and history of CVA and indwelling Garcia catheter who presented to the hospital with altered mental status. She was treated outpatient for UTI. She was noted to be in atrial fibrillation with rapid ventricular response and sepsis due to UTI. Her cultures grew ESBL E. coli and Dr. Blue was consulted in the case. The patient was treated initially with ceftriaxone. Once the cultures came back positive for ESBL, she was switched to meropenem. Eventually, she was switched on p.o. medications, was tolerating p.o. diet to doxycycline. Dr. Blue recommended at discharge for the patient to continue doxycycline at 100 mg b.i.d. for a total of 7 days. The patient's hospitalization course was complicated by encephalopathy due to sepsis. The patient was initially combative. Later on, she was lethargic with very poor p.o. intake. She developed hyponatremia due to dehydration, which was corrected and almost resolved by the time of discharge. Initially, due to her atrial fibrillation with rapid ventricular response, she was on Cardizem drip. Later on, it was discontinued. The patient continued to be going back and forth in between atrial fibrillation and sinus rhythm on the day of discharge when she had eventually converted to sinus rhythm and stayed in it. The patient's Toprol XL dose was increased over the course of her hospital stay to twice a day, which is going to be continued at discharge. The patient had transient transaminitis noted that resolved almost entirely by the time of discharge and likely developed due to sepsis. At discharge, the patient is going to be going back to [facility] for further treatment. PHYSICAL EXAM: At the time of discharge, blood pressure of 136/66, heart rate of 61 and regular, respiratory rate 16, oxygen saturation 98% on room air, temperature 97.5. General: The patient is a very pleasant 78-year-old female who is in no acute distress. The patient is alert and oriented to self only. She recognized family members. She would not be able to give me the location or time. HEENT: Head atraumatic, normocephalic. Eyes: Pupils equal, round, and reactive to light and accommodation. Oropharynx clear. Mucosa moist. Neck : Supple. No JVD. No bruits bilaterally. Cardiovascular: Regular rate and rhythm. No murmur. Respiratory: Clear to auscultation bilaterally. Abdomen: Soft, nontender. Bowel sounds present in all 4 quadrants. Extremities: There is no edema. Pulse +2 bilaterally. No clubbing or cyanosis. Neuro Evaluation : The patient has contracted right arm. Minimal movement bilateral lower extremities mostly in the toes. The patient is unable to raise her legs against gravity. The left arm is at 4+/5 in motor strength. At discharge, the patient was recommended to follow up with the physician at [facility] in approximately 1 to 3 days. Please note that this is a short summary of the patient's hospitalization. Please refer to further medical records for details. TIME SPENT: Approximately 35 minutes were spent in preparation of the patient' s discharge. [id number] #: [id number] #: [id number] VARSHA
== END 2018-02-11 13:37 | DRG 698 ==
LOC: ED 19:24 → MEDTELE 21:59 → OBSVTOIN 21:59 → MEDTELE 02-07 10:51
PROVIDERS: ADMIT Internal Medicine; ATTEND Internal Medicine
DX: T83.518A Infection and inflammatory reaction due to other urinary catheter, initial encounter (principal); A41.9 Sepsis, unspecified organism; G93.41 Metabolic encephalopathy; E87.1 Hypo-osmolality and hyponatremia; E87.0 Hyperosmolality and hypernatremia; I69.359 Hemiplegia and hemiparesis following cerebral infarction affecting unspecified side; R13.10 Dysphagia, unspecified; R74.0 Nonspecific elevation of levels of transaminase and lactic acid dehydrogenase [LDH]; Y73.1 Therapeutic (nonsurgical) and rehabilitative gastroenterology and urology devices associated with adverse incidents; R33.9 Retention of urine, unspecified; G35 Multiple sclerosis; E78.5 Hyperlipidemia, unspecified; F41.0 Panic disorder [episodic paroxysmal anxiety]; I48.0 Paroxysmal atrial fibrillation; G50.0 Trigeminal neuralgia; K21.9 Gastro-esophageal reflux disease without esophagitis; H50.10 Unspecified exotropia; E55.9 Vitamin D deficiency, unspecified; E53.8 Deficiency of other specified B group vitamins; Z66 Do not resuscitate; Z88.1 Allergy status to other antibiotic agents; Z88.0 Allergy status to penicillin; Z88.8 Allergy status to other drugs, medicaments and biological substances; Y92.009 Unspecified place in unspecified non-institutional (private) residence as the place of occurrence of the external cause; Z86.19 Personal history of other infectious and parasitic diseases; Z98.51 Tubal ligation status; Z82.49 Family history of ischemic heart disease and other diseases of the circulatory system; Z82.3 Family history of stroke; N30.90 Cystitis, unspecified without hematuria; B96.20 Unspecified Escherichia coli [E. coli] as the cause of diseases classified elsewhere; Z79.01 Long term (current) use of anticoagulants
CPT/HCPCS: 36415; 71045; 76775; 76857; 80048; 80053; 81003; 81015; 83605; 83735; 83880; 84134; 84443; 84484; 85025; 85610; 87040; 87077; 87086; 87186; 87641; 93005; 99285; A9270-GY; J0696; J1160; J2185; J3475; J3480; J3490

== ENCOUNTER 2018-06-14 17:10 | Emergency (ER) | payer MEDICARE, OTHER, MEDICAID ==
--- NOTE | 2018-06-14 17:35 | ED ---
Head Injury - HPI Summary HPI Summary: This patient is a 78 year old F brought in by ambulance to ED with a chief complaint of head injury and pain to the top of her head s/p fall off her bed. The patient rates the pain 3/10 in severity. Symptoms aggravated by nothing. Symptoms alleviated by nothing. Patient reports dizziness/light-headedness after fall. Patient denies LOC, double vision, nausea, neck pain, UE and LE pain , CP, and back pain. Patient is on blood thinners. PMHx of MS (unable to ambulate). - History Of Current Complaint Chief Complaint: EDFall Stated Complaint: FELL OUT OF BED PER EMS Time Seen by Provider: 06/14/18 17:14 Hx Obtained From: Patient Mechanism Of Injury: Fall From Height Of: - bed Onset/Duration: Started Minutes Ago, Still Present Onset of Pain: Immediate, Post Accident Severity Currently: Mild Severity Initially: Mild Pain Intensity: 3 Pain Scale Used: 0-10 Numeric Location of Head Injury: Other: - top of the head Aggravating Factor(s): Other: - nothing Alleviating Factor(s): Other: - nothing Associated Signs And Symptoms: Other: - pain to top of the head, dizziness/light -headedness; denies LOC, double vision, nausea, neck pain, UE and LE pain, CP, and back pain - Allergies/Home Medications Allergies/Adverse Reactions: Allergies Allergy/AdvReac Type Severity Reaction Status Date / Time amoxicillin [From Augmentin] Allergy Unknown Verified 11/25/17 09:56 Reaction Details carbamazepine [From Tegretol] Allergy Unknown Verified 11/25/17 09:56 Reaction Details clavulanic acid Allergy Unknown Verified 11/25/17 09:56 [From Augmentin] Reaction Details digoxin Allergy Rash Verified 02/05/18 23:54 phenytoin [From Dilantin] Allergy Unknown Verified 11/25/17 09:56 Reaction Details rivaroxaban [From Xarelto] Allergy Unknown Verified 11/25/17 09:56 Reaction Details Home Medications: Home Medications Acetaminophen TAB* [Tylenol TAB*] 975 mg PO BID 06/14/18 [History Confirmed 04/03] Acetaminophen TAB* [Tylenol TAB*] 975 mg PO DAILY PRN 06/14/18 [History Confirmed 06/14/18] Amiodarone TAB* [Cordarone TAB*] 100 mg PO DAILY 06/14/18 [History Confirmed 04/03] Lactobacillus Acidophilus [Freeze Dried Acidophilus] 1 cap PO DAILY 06/14/18 [ History Confirmed 06/14/18] tiZANidine TAB* [Zanaflex TAB*] 4 mg PO BEDTIME 06/14/18 [History Confirmed 04/03] PMH/Surg Hx/FS Hx/Imm Hx Endocrine/Hematology History: Denies: Hx Diabetes, Hx Systemic Lupus Erythematosus Cardiovascular History: Reports: Hx Atrial Fibrillation, Hx Hypercholesterolemia , Hx Hypotension Denies: Hx Congestive Heart Failure, Hx Hypertension, Hx Pacemaker/ICD Respiratory History: Denies: Hx Asthma History: Reports: Other Problems/Disorders - urinary retention, chronic hsu Denies: Hx Dialysis, Hx Renal Disease Musculoskeletal History: Reports: Other Musculoskeletal History - MS Denies: Hx Rheumatoid Arthritis Sensory History: Reports: Hx Contacts or Glasses Denies: Hx Hearing Aid Opthamlomology History: Reports: Hx Contacts or Glasses Neurological History: Reports: Hx CVA, Hx Seizures, Other Neuro Impairments/ Disorders - MS Psychiatric History: Reports: Hx Panic Disorder - ANXIETY - Cancer History Cancer Type, Location and Year: breast biopsy, benign Hx Chemotherapy: No - Surgical History Surgery Procedure, Year, and Place: TONSILECTOMY. TUBAL LIGATON. BREAST BIOPSY -BENIGN Hx Anesthesia Reactions: No Infectious Disease History: No Infectious Disease History: Reports: Hx Clostridium Difficile Denies: Traveled Outside the [place] in Last 30 Days - Family History Known Family History: Positive: Cardiac Disease - Mother: TIA. Father: CVA, CHF - Social History Alcohol Use: None Hx Substance Use: No Substance Use Type: Reports: None Hx Tobacco Use: No Smoking Status (MU): Never Smoked Tobacco Review of Systems Negative: Fever, Chills Positive: Other - denies double vision. Negative: Erythema Negative: Sore Throat Negative: Chest Pain Negative: Shortness Of Breath, Cough Negative: Abdominal Pain, Vomiting, Nausea Negative: dysuria, hematuria Positive: Other - head injury, pain to top of her head; denies neck pain, UE and LE pain, and back pain. Negative: Myalgia, Edema Negative: Rash Neurological: Other - dizziness/light-headedness after fall; denies LOC All Other Systems Reviewed And Are Negative: Yes Physical Exam - Summary Physical Exam Summary: Constitutional: Well-developed, Well-nourished, Alert. (-) Distressed Skin: Warm, Dry HENT: Normocephalic; she has a temporal/parietal scalp hematoma about 1cm Eyes: Conjunctiva normal Neck: Musculoskeletal ROM normal neck. (-) JVD, (-) Stridor, (-) Tracheal deviation Cardio: Rhythm regular, rate normal, Heart sounds normal; Intact distal pulses; The pedal pulses are 2+ and symmetric. Radial pulses are 2+ and symmetric. (-) Murmur Pulmonary/Chest wall: Effort normal. (-) Respiratory distress, (-) Wheezes, (-) Rales Abd: Soft, (-) epigastric tenderness, (-) Distension, (-) Guarding, (-) Rebound Musculoskeletal: (-) Edema, Bilateral LE are paretic, RUE has 4/5 strength, LUE 5/5 strength, FROM at hips, no bony tender at hips, no spinal tenderness Lymph: (-) Cervical adenopathy Neuro: Alert, Oriented x3 Psych: Mood and affect Normal GCS: 15 Triage Information Reviewed: Yes Vital Signs On Initial Exam: Initial Vitals Temp Pulse Resp BP Pulse Ox 97.4 F 58 18 137/75 100 06/14/18 17:17 06/14/18 17:17 06/14/18 17:17 06/14/18 17:17 06/14/18 17:17 Vital Signs Reviewed: Yes Diagnostics - Vital Signs Vital Signs Temp Pulse Resp BP Pulse Ox 06/14/18 17:17 97.4 F 58 18 137/75 100 - Laboratory Lab Statement: Any lab studies that have been ordered have been reviewed, and results considered in the medical decision making process. - CT CT C-spine CT Interpretation Completed By: Radiologist Summary of CT Findings: 1. No acute cervical spine fracture. 2. Other chronic findings. Dr. Marcelino has reviewed this radiology report. Brain CT CT Interpretation Completed By: Radiologist Summary of CT Findings: 1. No acute intracranial pathology. 2. Partial opacification of right mastoid air cells. Correlate clinically for signs/ symptoms of right mastoiditis. 3. Other chronic findings. Dr. Marcelino has reviewed this radiology report. Re-Evaluation - Re-Evaluation First Eval Re-Evaluation Time: 17:37 Comment: Performed physical exam Second Eval Re-Evaluation Time: 19:08 Comment: Discussed results with the patient and plan for discharge. Patient understands and agrees with this plan. Head Injury Course/Dx Assessment/Plan: This patient is a 78 year old F brought in by ambulance to ED with a chief complaint of head injury and pain to the top of her head s/p fall off her bed. CT C-spine reveals 1. No acute cervical spine fracture. 2. Other chronic findings. Brain CT reveals 1. No acute intracranial pathology. 2. Partial opacification of right mastoid air cells. Correlate clinically for signs/symptoms of right mastoiditis. 3. Other chronic findings. This patient will be discharged with dx of fall and scalp hematoma. Patient understands and agrees with this plan. - Diagnoses Differential Diagnosis/HQI/PQRI: Other - fall and scalp hematoma Provider Diagnoses: Scalp hematoma, Fall Discharge - Sign-Out/Discharge Documenting (check all that apply): Patient Departure - discharge Patient Received Moderate/Deep Sedation with Procedure: No - Discharge Plan Condition: Stable Disposition: HOME Patient Education Materials: Fall Prevention for Older Adults (ED), Hematoma ( ED) Referrals: Osmany Suh NP [Primary Care Provider] - 3 Days Additional Instructions: RETURN TO THE EMERGENCY DEPARTMENT FOR CHANGING OR WORSENING SYMPTOMS - Billing Disposition and Condition Condition: STABLE Disposition: Home - Attestation Statements Document Initiated by Yuly: Yes Documenting Scribe: Nash Marmolejo Provider For Whom Yuly is Documenting (Include Credential): Leonardo Marcelino MD Scribe Attestation: Nash Spain, scribed for Leonardo Marcelino MD on 06/14/18 at 2133. Scribe Documentation Reviewed: Yes Provider Attestation: The documentation as recorded by the Nash gamboa accurately reflects the service I personally performed and the decisions made by , Leonardo Marcelino MD Status of Scribe Document: Viewed
[2018-06-14 20:47] VITALS: BP 124/65
== END 2018-06-14 20:52 | disposition home or self-care (01) ==
LOC: ED 17:10
DX: S00.03XA Contusion of scalp, initial encounter (principal); W06.XXXA Fall from bed, initial encounter; Y92.003 Bedroom of unspecified non-institutional (private) residence as the place of occurrence of the external cause; R42 Dizziness and giddiness; M50.323 Other cervical disc degeneration at C6-C7 level; H74.8X1 Other specified disorders of right middle ear and mastoid; I48.91 Unspecified atrial fibrillation; Z79.01 Long term (current) use of anticoagulants; Z88.1 Allergy status to other antibiotic agents; Z88.0 Allergy status to penicillin; Z88.8 Allergy status to other drugs, medicaments and biological substances
CPT/HCPCS: 70450; 72125; 99284